=== PATIENT | male | born 2000 | race African-American/Black ===

== ENCOUNTER 2021-12-18 03:35 | Emergency (ER) | payer OTHER, SELFPAY ==
[2021-12-18 03:49] VITALS: BP 133/77; PULSE 84; RESP 15; TEMP 36.7; O2SAT 98; BMI 40.3
[2021-12-18 04:15] LABS: Appearance Urine CLEAR; Color Urine YELLOW; Glucose Urine UA NEG (NEG); Leukocyte Esterase Urine NEG (NEG); Nitrite Urine NEG (NEG); Specific Gravity - Urine >= 1.030 (1.005-1.025); Urine Blood NEG (NEG); Urine Ketones NEG (NEG); Urine Protein NEG (NEG-TRACE)
[2021-12-18 04:56] LABS: Basophils Percent Auto 0.3 % (0-2); Eosinophils Percent Auto 0.3 % (0-4); Hematocrit 44.3 % (42.0-52.0); Hemoglobin 14.9 g/dl (14.0-18.0); Imm Gran Abs Auto 0.01 X10*3/uL (0.00-0.03); Imm Gran Pct Auto 0.1 % (0.0-0.4); Lymphocytes Absolute Auto 1.9 X10*3/uL (1.2-4.9); Lymphocytes Percent Auto 27.7 % (20-40); MANUAL DIFF FLAG NO; Mean Corpuscular HGB Conc 33.6 g/dl (31.0-36.0); Mean Corpuscular Hemoglobin 27.8 pg (27.0-33.0); Mean Corpuscular Volume 82.6 fL (80.0-98.0); Mean Platelet Volume 9.3 fL (9.4-12.4); Monocytes Absolute Auto 0.3 X10*3/uL (0.1-1.2); Monocytes Percent Auto 4.7 % (2-11); Neutrophils Absolute Auto 4.5 x10*3/uL (2.0-8.3); Neutrophils Percent Auto 66.9 % (45-73); Platelet Count 265 X10*3/uL (160-400); Red Blood Count 5.36 X10*6/uL (4.60-5.80); Red Cell Distribution Width 13.1 % (11.0-16.0); White Blood Count 6.8 X10*3/uL (4.8-10.8)
[2021-12-18 05:15] LABS: Alanine Aminotransferase 34 U/L (0-40); Albumin Level 4.4 g/dL (3.5-5.0); Alkaline Phosphatase 75 U/L (39-117); Anion Gap 13 (12-20); Aspartate Amino Transferase 16 U/L (5-37); Bilirubin Direct 0.2 mg/dL (0.0-0.5); Bilirubin Total 0.6 mg/dL (0.0-1.0); Blood Urea Nitrogen 13 mg/dL (9-16); Calcium 9.4 mg/dL (8.4-10.2); Carbon Dioxide 26 mmol/L (22-29); Chloride 106 mmol/L (96-108); Creatinine Clr Calc Pharmacy 169.9; Estimated Glomerular Filt Rate > 60; Glucose Random 108 mg/dL (60-115); Lipase 18 U/L (8-78); Sodium 141 mmol/L (135-145); Total Protein 7.3 g/dL (6.5-8.0)
--- NOTE | 2021-12-18 08:30 | ED_ITS ---
HPI - Male Genitourinary General Chief complaint: Urogenital-Male Stated complaint: Pain when urinating Time Seen by Provider: 12/18/21 08:29 Source: patient Mode of arrival: ambulatory History of Present Illness HPI Narrative: 21-year-old male who presents with dysuria since this morning, denies any fever or chills or penile discharge and denies any scrotal pain. Related Data Previous Rx's Medication Instructions Recorded doxycycline hyclate 100 mg capsule 100 mg PO BID 7 days #14 caps 12/18/21 Allergies Allergy/AdvReac Type Severity Reaction Status Date / Time No Known Allergies Allergy Verified 12/18/21 03:53 Review of Systems Review of Systems: Pertinent positives and negatives as stated in HPI 10 point review of systems is otherwise negative. PMFSH Past Medical History Source: nursing notes reviewed Medical History No known health problems Social History Social History Advance Directives: No Advance Directives Information Provided: No Physical Exam Vital Signs: Vital Signs: Last Vital Signs Temp 98.1 F 12/18/21 03:49 Pulse 84 12/18/21 03:49 Resp 15 12/18/21 03:49 BP 133/77 12/18/21 03:49 Pulse Ox 98 12/18/21 03:49 O2 Del Method 12/18/21 03:49 BMI result Body Mass Index 40.3 VITAL SIGNS: Reviewed. GENERAL: Well developed, well nourished, in no acute distress. HEAD: Normocephalic/atraumatic EYES: PERRLA, EOMI EARS: Ext canals without abnormality OROPHARYNX: no oral lesions noted, posterior pharynx clear LUNGS: Normal breath sounds. No adventitious sounds or accessory muscle use. SpO2<98> CARDIOVASCULAR: Regular rate and rhythm without noted murmurs ABDOMEN: Soft, non-tender, non-distended with bowel sounds. SKIN: Inspection of the skin reveals no rashes NEUROLOGIC: Alert and oriented x 4. Course Course Course Narrative: 21-year-old male with history and clinical presentation suggestive of possible UTI/STI and otherwise low clinical suspicion for intra-abdominal pathology, renal colic. On review of all investigations there are no acute findings, STI testing was pursued and patient was empirically treated after discussion with him regarding the process. He was instructed to stop the antibiotics if he reviewed the STI workup and it was negative. He understands and agrees with proceeding with this testing. MDM - Male Genitourinary Lab Data Result diagrams: 12/18/21 04:35 12/18/21 04:35 Labs: Lab Results 12/18/21 12/18/21 12/18/21 Range/Units 04:02 04:35 04:35 WBC 6.8 (4.8-10.8) X10*3/uL RBC 5.36 (4.60-5.80) X10*6/uL Hgb 14.9 (14.0-18.0) g/dl Hct 44.3 (42.0-52.0) % MCV 82.6 (80.0-98.0) fL MCH 27.8 (27.0-33.0) pg MCHC 33.6 (31.0-36.0) g/dl RDW 13.1 (11.0-16.0) % Plt Count 265 (160-400) X10*3/uL MPV 9.3 L (9.4-12.4) fL Immature Gran % (Auto) 0.1 (0.0-0.4) % Neut % (Auto) 66.9 (45-73) % Lymph % (Auto) 27.7 (20-40) % [place] % (Auto) 4.7 (2-11) % Eos % (Auto) 0.3 (0-4) % Baso % (Auto) 0.3 (0-2) % Lymph # (Auto) 1.9 (1.2-4.9) X10*3/uL [place] # (Auto) 0.3 (0.1-1.2) X10*3/uL Eos # (Auto) 0.0 (0.0-0.4) X10*3/uL Baso # (Auto) 0.0 (0.0-0.2) X10*3/uL Abs Immat Gran (auto) 0.01 (0.00-0.03) X10*3/uL Absolute Neuts (auto) 4.5 (2.0-8.3) x10*3/uL Absolute Nucleated RBC 0.000 (0.0-0.012) X10*3/uL Nucleated RBC % (auto) 0.0 (0.0-0.2) /100WBC Sodium 141 (135-145) mmol/L Potassium 4.0 (3.3-5.1) mmol/L Chloride 106 (96-108) mmol/L Carbon Dioxide 26 (22-29) mmol/L Anion Gap 13 (12-20) BUN 13 (9-16) mg/dL Creatinine 0.76 (0.5-1.4) mg/dL Estim Creat Clear Calc 169.9 Estimated GFR > 60 Random Glucose 108 (60-115) mg/dL Calcium 9.4 (8.4-10.2) mg/dL Total Bilirubin 0.6 (0.0-1.0) mg/dL Direct Bilirubin 0.2 (0.0-0.5) mg/dL AST 16 (5-37) U/L ALT 34 (0-40) U/L Alkaline Phosphatase 75 (39-117) U/L Total Protein 7.3 (6.5-8.0) g/dL Albumin 4.4 (3.5-5.0) g/dL Lipase 18 (8-78) U/L Urine Color YELLOW Urine Appearance CLEAR Urine pH 6.0 (5.0-8.0) Ur Specific [place] >= 1.030 H (1.005-1.025) Urine Protein NEG (NEG-TRACE) MG/DL Urine Glucose (UA) NEG (NEG) MG/DL Urine Ketones NEG (NEG) MG/DL Urine Blood NEG (NEG) Urine Nitrite NEG (NEG) Ur Leukocyte Esterase NEG (NEG) Discharge Plan Discharge Clinical Impression: Dysuria, Urethritis Patient Disposition: Home, Self-Care Instructions: Dysuria (ED) Additional Instructions: 1. Please follow-up on the results of your STI screening, if they are positive you will need to inform all sexual partners. 2. Complete the entire course of antibiotics, but it is okay to stop if on review of your STI screening it is negative. 3. Please refrain from having any sexual relations for 1 week unless, again, the STI screening is negative. Return to the ER for worsening symptoms. Prescriptions: New doxycycline hyclate 100 mg capsule 100 mg PO BID 7 Days Qty: 14 0RF
[2021-12-18] MEDS: cefTRIAXone sodium 500 MG, Lidocaine HCl 1 % MPF 1 ML IM (08:58)
[2021-12-18 11:52] LABS: CT PCR NOT DETECTED (Not Detect.); NG PCR NOT DETECTED (Not Detect.)
== END 2021-12-18 09:08 | disposition home or self-care (01) ==
PROVIDERS: Emergency Provider Student in an Organized Health Care Education/Training Program
DX: N34.2 Other urethritis (principal); R36.9 Urethral discharge, unspecified; R30.0 Dysuria; Z20.2 Contact with and (suspected) exposure to infections with a predominantly sexual mode of transmission; Z79.899 Other long term (current) drug therapy
CPT/HCPCS: 36415; 80053; 81003; 82248; 83690; 85025; 87491; 87591; 96372; 99282; 99284; J0696

== ENCOUNTER 2022-04-12 23:19 | Emergency (ER) | payer SELFPAY ==
--- NOTE | ~2022-04-12 | XR_ITS ---
EXAMINATION: XR HAND/WRIST, LEFT CLINICAL INFORMATION: Pain COMPARISON: None TECHNIQUE: PA, lateral, and oblique views of the left hand and wrist. FINDINGS: There is a nondisplaced transverse fracture of the ring finger distal phalanx at the junction of the base and shaft. No appreciable intra-articular extension. Surrounding soft tissues are swollen. No additional fractures are identified. Bone mineralization is normal. Joints are unremarkable. XR/XR hand wrist LT IMPRESSION: Nondisplaced transverse fracture of the ring finger distal phalanx.
--- NOTE | ~2022-04-12 | CT_ITS ---
EXAMINATION: HEAD CT WITHOUT CONTRAST MAXILLOFACIAL CT WITHOUT CONTRAST CLINICAL INFORMATION: PAIN, SWELLING LEFT EYE. Status post fall. COMPARISON: None. TECHNIQUE: Contiguous axial imaging of the head was performed without the administration of IV contrast. Axial multidetector volumetric images were also obtained through the facial bones without contrast from the frontal sinuses through the mandible. Multiplanar reconstructed images in coronal and sagittal orientations were submitted. This CT examination was performed using dose optimization techniques as appropriate, variously including the following: *Automated exposure control *Adjustment of mA and/or kV according to patient size (this includes techniques or standardized protocols for targeted exams where dose is matched to indication/reason for exam; i.e. extremities or head) *Use of iterative reconstruction technique DOSE: 1292 mGy-cm FINDINGS: HEAD: There is no evidence of acute intracranial hemorrhage or territorial infarction. No abnormal mass-effect or midline shift. No extra-axial fluid collections. Arizm[place] to white matter differentiation is well preserved. The ventricles are normal in size and configuration. There is no abnormal attenuation within the brain parenchyma. Left periorbital swelling. Trace left parietal subgaleal hematoma (3 mm in thickness). No underlying calvarial fractures. The sinuses and mastoid air cells are clear. MAXILLOFACIAL: The mandible, maxilla, pterygoid plates, nasal bones, zygomatic arches, paranasal sinus bernardo, and bony orbits are intact. No acute osseous abnormality within the maxillofacial region. Left periorbital soft tissue swelling with subcutaneous edema. No post septal fat stranding or retrobulbar hematoma. Globes appear symmetric. No underlying fractures. The paranasal sinuses and mastoid air cells remain well-aerated. Minimal mucosal thickening in the maxillary sinuses. Teeth appear intact without acute surrounding abnormalities. Temporomandibular joints are unremarkable. CT/CT facial bones wo IV con IMPRESSION: 1. No acute intracranial pathology. 2. Left periorbital soft tissue swelling. No underlying fractures.
[2022-04-12 23:37] VITALS: BP 152/96; PULSE 121; RESP 18; TEMP 37.9; O2SAT 95; BMI 44.9
--- NOTE | 2022-04-12 23:46 | PC.NURSE ---
pupils are 4mm and equal/briskly reactive to light at triage
[2022-04-13 00:26] VITALS: BP 145/94; PULSE 119; RESP 18; TEMP 37; O2SAT 96
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
[2022-04-13 01:54] VITALS: BP 146/82; PULSE 102; RESP 16; TEMP 36.9; O2SAT 96
[2022-04-13] MEDS: Ibuprofen 600 MG TABLET PO (01:55)
== END 2022-04-13 02:04 | disposition home or self-care (01) ==
PROVIDERS: Emergency Provider Internal Medicine
DX: S09.90XA Unspecified injury of head, initial encounter (principal); S00.83XA Contusion of other part of head, initial encounter; S62.665A Nondisplaced fracture of distal phalanx of left ring finger, initial encounter for closed fracture; V28.09XA Other motorcycle driver injured in noncollision transport accident in nontraffic accident, initial encounter; Y93.89 Activity, other specified; Y92.414 Local residential or business street as the place of occurrence of the external cause; Y99.9 Unspecified external cause status
CPT/HCPCS: 29130; 70450; 70486; 73110; 73130; 99284

== ENCOUNTER 2022-04-15 00:44 | Emergency (ER) | payer SELFPAY ==
[2022-04-15 00:50] VITALS: BP 134/84; PULSE 85; RESP 18; TEMP 36.6; O2SAT 97; BMI 44.9
[2022-04-15 01:12] LABS: Appearance Urine Clear; Color Urine Yellow; Glucose Urine UA Negative (Negative); Leukocyte Esterase Urine Small (1+) (Negative); Nitrite Urine Negative (Negative); PH 5.5 (5.0-9.0); Specific Gravity - Urine >= 1.030 (1.005-1.025); UMIC TRIGGER UACC YES; Urine Blood Negative (Negative); Urine Ketones Trace mg/dL (Negative); Urine Protein Negative (Neg-Trace)
[2022-04-15 01:14] LABS: Bacteria Urine None Seen (None Seen); Hyaline Casts Urine 0-2 /LPF (0-2); UACC Culture Trigger YES
--- NOTE | 2022-04-15 01:43 | ED_ITS ---
HPI - General Adult General Chief complaint: General Medical Stated complaint: possible UTI/bladder infection Time Seen by Provider: 04/15/22 01:31 Source: patient Mode of arrival: ambulatory Limitations: no limitations History of Present Illness HPI narrative: Patient comes to emergency room complaining of dysuria that started 50 minutes prior to arrival to the emergency room. Patient denies penile discharge. However, patient is concerned about STDs, requesting to be treated empirically. Patient denies fever chills, no abdominal pain, no flank pain. Related Data Previous Rx's Medication Instructions Recorded doxycycline hyclate 100 mg capsule 100 mg PO BID 7 days #14 caps 12/18/21 ibuprofen 600 mg tablet 600 mg PO Q6H PRN fever or pain 04/13/22 #30 tabs cefuroxime axetil 500 mg tablet 500 mg PO BID #14 tabs 04/15/22 doxycycline hyclate 100 mg tablet 100 mg PO BID #14 tabs 04/15/22 Allergies Allergy/AdvReac Type Severity Reaction Status Date / Time No Known Allergies Allergy Verified 04/12/22 23:37 Review of Systems Review of Systems: Constitutional : No Weight loss, No Fever, No Chills, No Night Sweats, No Fatigue, No Malaise ENT/Mouth : No Hearing loss, No Ear Pain, No Nasal Congestion, No Sinus Pain, No Hoarseness, No sore throat, No Rhinorrhea, No Swallowing Difficulty Eyes: No Eye Pain, No Swelling, No Redness, No Foreign Body, No Discharge, No Vision Changes Cardiovascular : No Chest Pain, No SOB, No Dyspnea on Exertion, No Orthopnea, No Edema, No Palpitations Respiratory : No Cough, No Sputum, No Wheezing, No Smoke Exposure, No Dyspnea Gastrointestinal : No Nausea, No Vomiting, No Diarrhea, No Constipation, No abdominal Pain, No Hematochezia, No Melena Genitourinary : no irregular bleeding, c/o Dysuria, No Urinary Frequency, No Hematuria, No Urinary Incontinence, No Urgency, No Flank Pain, No Urinary Flow Changes, No Hesitancy Musculoskeletal : No joint pain, No Myalgias, No Joint Swelling Skin : No Skin Lesions, No rash Neuro : No Weakness, No Numbness, No Paresthesias, No Loss of Consciousness, No Dizziness, No Headache Psych : No Anxiety/Panic, No Depression, No SI/HI/AH/VH, No Social Issues, Heme/Lymph: No Bruising, No Bleeding,No Lymphadenopathy Endocrine : No Polyuria, No Polydipsia, No Temperature Intolerance [facility] Past Medical History Medical History No known health problems Physical Exam ED Vital Signs: Vital Signs - 24 hr 04/15/22 00:50 Temperature 97.9 F Pulse Rate 85 Respiratory Rate 18 Blood Pressure 134/84 Pulse Oximetry 97 Oxygen Delivery Method Room Air BMI result Body Mass Index 44.9 Const Other: Appearance: Alert. Oriented X3. No acute distress. Eyes: Pupils equal, round and reactive to light. ENT: Pharynx normal. Neck: Normal inspection. Neck supple. No lymph nodes noted. No crepitus CVS: Normal heart rate and rhythm. Pulses normal. Normal S1 and S2 Respiratory: No respiratory distress. Breath sounds normal. No Wheezing. No rales Abdomen: Soft and nontender. No rigidity. No distention. Skin: Skin warm and dry. Normal skin color. Normal skin turgor. Extremities: No lower extremity edema. No Lacerations. No Rash Neuro: Oriented X 3. No motor deficit. No sensory deficit. Moving all extremities. No slurred speech. CN 2 through 12 grossly intact Psych: calm, cooperative, normal affect Course Course Course Narrative: patient was given 1 injection of IM Ceftriaxone and p.o. doxycycline Medical Decision Making Lab Data Labs: Lab Results 04/15/22 Range/Units 01:00 Urine Color Yellow Urine Appearance Clear Urine pH 5.5 (5.0-9.0) Ur Specific [place] >= 1.030 H (1.005-1.025) Urine Protein Negative (Neg-Trace) mg/dL Urine Glucose (UA) Negative (Negative) mg/dL Urine Ketones Trace (Negative) mg/dL Urine Blood Negative (Negative) Urine Nitrite Negative (Negative) Ur Leukocyte Esterase Small (1+) H (Negative) Urine RBC 3-5 H (0-2) /HPF Urine WBC 6-10 H (0-5) /HPF Ur Squamous Epith Cells 3-5 (0-2) /HPF Urine Bacteria None Seen (None Seen) Hyaline Casts 0-2 (0-2) /LPF Discharge Plan Discharge Clinical Impression: Concern about STD in male without diagnosis, UTI (urinary tract infection) Patient Disposition: Home, Self-Care Instructions: Urinary Tract Infection in Men (ED) Additional Instructions: Please follow-up with your primary care physician tomorrow. If you have any worsening or new symptoms, please return to the emergency room or call 911 Prescriptions: New cefuroxime axetil 500 mg tablet 500 mg PO BID Qty: 14 0RF doxycycline hyclate 100 mg tablet 100 mg PO BID Qty: 14 0RF No Action doxycycline hyclate 100 mg capsule 100 mg PO BID 7 Days Qty: 14 0RF ibuprofen 600 mg tablet 600 mg PO Q6H PRN (Reason: fever or pain) Qty: 30 0RF
[2022-04-15] MEDS: Doxycycline Monohydrate 100 MG CAPSULE PO (02:09)
[2022-04-15] MEDS: cefTRIAXone sodium 1 GM, Lidocaine HCl 1 % MPF 2.1 ML IM (02:09)
[2022-04-15 07:22] LABS: CT PCR NOT DETECTED (Not Detect.); NG PCR NOT DETECTED (Not Detect.)
== END 2022-04-15 02:31 | disposition home or self-care (01) ==
LOC: HO.ED 01:59
PROVIDERS: Emergency Provider Emergency Medicine
DX: N39.0 Urinary tract infection, site not specified (principal); Z20.2 Contact with and (suspected) exposure to infections with a predominantly sexual mode of transmission; Z79.899 Other long term (current) drug therapy
CPT/HCPCS: 81001; 87086; 87491; 87591; 96372; 99282; 99284; J0696

== ENCOUNTER 2022-04-22 22:13 | Emergency (ER) | payer SELFPAY ==
[2022-04-22 22:24] VITALS: BP 145/80; PULSE 95; RESP 18; TEMP 36.5; O2SAT 98; BMI 44.9
[2022-04-23 00:21] VITALS: BP 121/79; PULSE 80; RESP 18; TEMP 37; O2SAT 96
--- NOTE | 2022-04-23 00:34 | ED.GENADULT ---
HPI - General Adult General Chief complaint: General Medical Stated complaint: Medical Clearance Time Seen by Provider: 04/23/22 00:33 Source: patient Mode of arrival: ambulatory Limitations: no limitations History of Present Illness HPI narrative: 22-year-old male presents with penile irritation. Stated that he was evaluated on 04/15/2022, and given antibiotics for STI and urinary tract infection. Patient states that he has ?white stuff on his penis? has pain when he urinates, and is concerned about recurrent infection. Does not report fevers or chills, abdominal pain, hematuria, is not immunocompromised. Onset (ago): day(s) Location: genitals Radiation: non-radiation Severity: moderate Severity scale (1-10): 5 Quality: burning Pain Consistency: intermittent Relieving factors: none Exacerbating factors: other (Voiding) Associated symptoms: denies other symptoms Treatments prior to arrival: other (Antibiotics) Related Data Previous Rx's Medication Instructions Recorded doxycycline hyclate 100 mg capsule 100 mg PO BID 7 days #14 caps 12/18/21 ibuprofen 600 mg tablet 600 mg PO Q6H PRN fever or pain 04/13/22 #30 tabs cefuroxime axetil 500 mg tablet 500 mg PO BID #14 tabs 04/15/22 doxycycline hyclate 100 mg tablet 100 mg PO BID #14 tabs 04/15/22 fluconazole 150 mg tablet 150 mg PO DAILY #1 tab 04/23/22 (Diflucan) Allergies Allergy/AdvReac Type Severity Reaction Status Date / Time No Known Allergies Allergy Verified 04/12/22 23:37 Review of Systems Review of Systems: Constitutional: No Fever, No Chills ENT/Mouth: No Ear Pain, No Hoarseness, No sore throat Eyes: No Eye Pain, No Swelling, No Redness, No Foreign Body Cardiovascular: No Chest Pain, No SOB Respiratory: No Cough, No Dyspnea Gastrointestinal: No Nausea, No Vomiting, No Diarrhea, No abdominal Pain Genitourinary: Positive penile discharge and Dysuria, No Hematuria Musculoskeletal: No joint pain, No Myalgias, No Joint Swelling Skin: No Skin lacerations, No rash Neuro: No Weakness, No Numbness, No Paresthesias, No Loss of Consciousness, No Dizziness, No Headache Psych: No Anxiety/Panic, No Depression Heme/Lymph: no easy bruising, no Lymphadenopathy Endocrine: No Polyuria, No Polydipsia Yes all other systems are reviewed and are negative [facility] Past Medical History Attestation statement: The following information was validated with the patient. Source: old records reviewed Medical History No known health problems Social History Social History Advance Directives: No Physical Exam ED Vital Signs: Vital Signs - 24 hr 04/22/22 22:24 04/23/22 00:21 Temperature 97.7 F 98.6 F Pulse Rate 95 80 Respiratory Rate 18 18 Blood Pressure 145/80 H 121/79 Pulse Oximetry 98 96 Oxygen Delivery Method Room Air Room Air BMI result Body Mass Index 44.9 Appearance: Alert. Oriented X3. No acute distress. Eyes: Pupils equal, round and reactive to light. ENT: Pharynx normal. Neck: Normal inspection. Neck supple. CVS: Normal heart rate and rhythm. Pulses normal. Respiratory: No respiratory distress. Breath sounds normal. Abdomen: Soft and nontender. Genitourinary: Tissue irritation around the glans and foreskin with white exudate consistent with candidiasis. No penile discharge. No testicular pain. Skin: Skin warm and dry. Normal skin color. Normal skin turgor. Extremities: No lower extremity edema. Gait well-balanced well coordinated. Neuro: No motor deficit. No sensory deficit. Cranial nerves 2-12 intact. Course Course Course Narrative: 22-year-old male presents for evaluation of penile discharge and dysuria. Was treated with cefuroxime and doxycycline on 04/15/2022 for suspected STI and urinary tract infection. Patient stated that he has been taking his medications as directed, finish the entire course of noted some white exudate around the head of the penis and on his retracted foreskin. He states to be sexually active with his female fiancee, and does not engage in intercourse with men. Physical inspection of genitalia indicates skin irritation and white exudate consistent with candidiasis. Will treat with Diflucan and have patient follow-up with his primary care physician Urinalysis is negative Patient verbalized understanding of and agrees to plan of care discharge home. Verbalized understanding of signs and symptoms indicating need for emergent intervention. Medications Administered Discontinued Medications Generic Name Dose Route Start Last Admin Trade Name Freq PRN Reason Stop Dose Admin Fluconazole 150 mg 04/23/22 00:50 04/23/22 01:22 Fluconazole 150 Mg Tablet PO 04/23/22 00:51 150 mg ONCE ONE Administration Medical Decision Making Differential Diagnosis Differential Diagnosis: Herpes, STI, UTI, candidiasis Medical Records Medical records reviewed: Yes I reviewed the patient's medical records. Lab Data Lab results reviewed: Yes I reviewed the patient's lab results. Labs: Lab Results 04/23/22 Range/Units 00:24 Urine Color Yellow Urine Appearance Clear Urine pH 6.0 (5.0-9.0) Ur Specific [place] >= 1.030 H (1.005-1.025) Urine Protein Trace (Neg-Trace) mg/dL Urine Glucose (UA) Negative (Negative) mg/dL Urine Ketones Negative (Negative) mg/dL Urine Blood Negative (Negative) Urine Nitrite Negative (Negative) Ur Leukocyte Esterase Negative (Negative) Discharge Plan Discharge Clinical Impression: Candidiasis Patient Disposition: Home, Self-Care Instructions: Skin Yeast Infection (ED) Additional Instructions: You were evaluated for dysuria. Your urinalysis is negative. Your symptoms are consistent with yeast infection. Please take Diflucan on April 26. We gave you your 1st dose in the emergency department. Thank you for choosing this emergency department for evaluation. Please follow-up with primary care physician as needed. Return to the emergency department for any new, concerning, or worsening symptoms. Prescriptions: New fluconazole [Diflucan] 150 mg tablet 150 mg PO DAILY Qty: 1 0RF Rx Instructions: Take this tablet on 04/26/2022. First dose given on 04/23/2022. No Action doxycycline hyclate 100 mg capsule 100 mg PO BID 7 Days Qty: 14 0RF cefuroxime axetil 500 mg tablet 500 mg PO BID Qty: 14 0RF doxycycline hyclate 100 mg tablet 100 mg PO BID Qty: 14 0RF ibuprofen 600 mg tablet 600 mg PO Q6H PRN (Reason: fever or pain) Qty: 30 0RF Interventions: ED Discharge Assessment Last Done: 04/23/22 01:28 Discharge Date/Time: 04/23/22 01:28
[2022-04-23 00:40] LABS: Appearance Urine Clear; Color Urine Yellow; Glucose Urine UA Negative (Negative); Leukocyte Esterase Urine Negative (Negative); Nitrite Urine Negative (Negative); Specific Gravity - Urine >= 1.030 (1.005-1.025); Urine Blood Negative (Negative); Urine Ketones Negative (Negative); Urine Protein Trace mg/dL (Neg-Trace)
[2022-04-23] MEDS: Fluconazole 150 MG TABLET PO (01:22)
--- NOTE | 2022-04-23 01:27 | PC.NURSE ---
Discharge instructions reviewed with pt. Pt verbalizes understanding.
== END 2022-04-23 01:28 | disposition home or self-care (01) ==
PROVIDERS: Emergency Provider Student in an Organized Health Care Education/Training Program
DX: B37.9 Candidiasis, unspecified (principal)
CPT/HCPCS: 81003; 99283

== ENCOUNTER 2022-07-05 22:39 | Emergency (ER) | payer OTHER, SELFPAY ==
[2022-07-05 23:02] VITALS: BP 151/88; PULSE 83; RESP 16; TEMP 36.8; O2SAT 97; BMI 43.2
--- NOTE | 2022-07-05 23:47 | ED.GENADULT ---
HPI - General Adult General Chief complaint: General Medical Stated complaint: STD check Time Seen by Provider: 07/05/22 23:34 Source: patient Mode of arrival: ambulatory Limitations: no limitations History of Present Illness HPI narrative: Patient comes to the emergency room complaining penile peeling. Patient states that he does not have dysuria. However, patient is requesting to be tested for STDs. Patient denies fever chills, no flank pain, no suprapubic pain. Denies penile discharge Related Data Previous Rx's Medication Instructions Recorded doxycycline hyclate 100 mg capsule 100 mg PO BID 7 days #14 caps 12/18/21 ibuprofen 600 mg tablet 600 mg PO Q6H PRN fever or pain 04/13/22 #30 tabs cefuroxime axetil 500 mg tablet 500 mg PO BID #14 tabs 04/15/22 doxycycline hyclate 100 mg tablet 100 mg PO BID #14 tabs 04/15/22 fluconazole 150 mg tablet 150 mg PO DAILY #1 tab 04/23/22 (Diflucan) clotrimazole 1 % topical cream 1 appl topical BID #15 grams 07/06/22 Allergies Allergy/AdvReac Type Severity Reaction Status Date / Time No Known Allergies Allergy Verified 04/12/22 23:37 Review of Systems Review of Systems: Constitutional : No Weight loss, No Fever, No Chills, No Night Sweats, No Fatigue, No Malaise ENT/Mouth : No Hearing loss, No Ear Pain, No Nasal Congestion, No Sinus Pain, No Hoarseness, No sore throat, No Rhinorrhea, No Swallowing Difficulty Eyes: No Eye Pain, No Swelling, No Redness, No Foreign Body, No Discharge, No Vision Changes Cardiovascular : No Chest Pain, No SOB, No Dyspnea on Exertion, No Orthopnea, No Edema, No Palpitations Respiratory : No Cough, No Sputum, No Wheezing, No Smoke Exposure, No Dyspnea Gastrointestinal : No Nausea, No Vomiting, No Diarrhea, No Constipation, No abdominal Pain, No Hematochezia, No Melena Genitourinary : Complaining of penile/glands skin peeling, No Dysuria, No Urinary Frequency, No Hematuria, No Urinary Incontinence, No Urgency, No Flank Pain, No Urinary Flow Changes, No Hesitancy Musculoskeletal : No joint pain, No Myalgias, No Joint Swelling Skin : No Skin Lesions, No rash Neuro : No Weakness, No Numbness, No Paresthesias, No Loss of Consciousness, No Dizziness, No Headache Psych : No Anxiety/Panic, No Depression, No SI/HI/AH/VH, No Social Issues, Heme/Lymph: No Bruising, No Bleeding,No Lymphadenopathy Endocrine : No Polyuria, No Polydipsia, No Temperature Intolerance [facility] Past Medical History Medical History No known health problems Social History Social History Advance Directives: No Physical Exam ED Vital Signs: Vital Signs - 24 hr 07/05/22 23:02 Temperature 98.2 F Pulse Rate 83 Respiratory Rate 16 Blood Pressure 151/88 H Pulse Oximetry 97 Oxygen Delivery Method Room Air BMI result Body Mass Index 43.2 Const Other: Appearance: Alert. Oriented X3. No acute distress. Eyes: Pupils equal, round and reactive to light. ENT: Pharynx normal. Neck: Normal inspection. Neck supple. No lymph nodes noted. No crepitus CVS: Normal heart rate and rhythm. Pulses normal. Normal S1 and S2 Respiratory: No respiratory distress. Breath sounds normal. No Wheezing. No rales Abdomen: Soft and nontender. No rigidity. No distention. : Mild peeling in the glands, no penile discharge, no testicular pain Skin: Skin warm and dry. Normal skin color. Normal skin turgor. Extremities: No lower extremity edema. No Lacerations. No Rash Neuro: Oriented X 3. No motor deficit. No sensory deficit. Moving all extremities. No slurred speech. CN 2 through 12 grossly intact Psych: calm, cooperative, normal affect Medical Decision Making Medical Decision Making MDM Narrative: -I discussed with the patient that if his urine test positive for gonorrhea chlamydia, he will receive a phone call in the next couple of days. At this time, I do not suspect the patient has either gonorrhea or chlamydia Discharge Plan Discharge Clinical Impression: Candidiasis of penis Patient Disposition: Home, Self-Care Instructions: Yeast Infection (ED) Additional Instructions: Please follow-up with your primary care physician tomorrow. If you have any worsening or new symptoms, please return to the emergency room or call 911 Prescriptions: New clotrimazole 1 % cream 1 appl topical BID Qty: 15 0RF No Action doxycycline hyclate 100 mg capsule 100 mg PO BID 7 Days Qty: 14 0RF cefuroxime axetil 500 mg tablet 500 mg PO BID Qty: 14 0RF doxycycline hyclate 100 mg tablet 100 mg PO BID Qty: 14 0RF ibuprofen 600 mg tablet 600 mg PO Q6H PRN (Reason: fever or pain) Qty: 30 0RF fluconazole [Diflucan] 150 mg tablet 150 mg PO DAILY Qty: 1 0RF Rx Instructions: Take this tablet on 04/26/2022. First dose given on 04/23/2022.
[2022-07-06 00:31] VITALS: BP 145/66; PULSE 88; RESP 16; TEMP 36.7; O2SAT 99
--- NOTE | 2022-07-06 00:36 | PC.NURSE ---
pt denies sob or chest pain. Reviewed discharge instructions with pt and pt verbalized.
== END 2022-07-06 00:39 | disposition home or self-care (01) ==
PROVIDERS: Emergency Provider Emergency Medicine; PCP Hospitalist
DX: B37.42 Candidal balanitis (principal); Z79.899 Other long term (current) drug therapy
CPT/HCPCS: 99284

== ENCOUNTER 2022-08-29 06:00 | Emergency (ER) | payer OTHER, SELFPAY ==
[2022-08-29 06:03] VITALS: BP 151/92; PULSE 85; RESP 18; TEMP 36.6; O2SAT 96; BMI 49.1
[2022-08-29 07:38] LABS: MANUAL DIFF FLAG NO
[2022-08-29 07:39] LABS: Basophils Percent Auto 0.4 % (0-2); Eosinophils Percent Auto 0.4 % (0-4); Hematocrit 46.5 % (42.0-52.0); Hemoglobin 15.6 g/dl (14.0-18.0); Imm Gran Abs Auto 0.02 X10*3/uL (0.00-0.03); Imm Gran Pct Auto 0.3 % (0.0-0.4); Lymphocytes Absolute Auto 1.8 X10*3/uL (1.2-4.9); Lymphocytes Percent Auto 26.2 % (20-40); Mean Corpuscular HGB Conc 33.5 g/dl (31.0-36.0); Mean Corpuscular Hemoglobin 27.8 pg (27.0-33.0); Mean Corpuscular Volume 82.7 fL (80.0-98.0); Mean Platelet Volume 9.1 fL (9.4-12.4); Monocytes Absolute Auto 0.5 X10*3/uL (0.1-1.2); Monocytes Percent Auto 6.7 % (2-11); Neutrophils Absolute Auto 4.5 x10*3/uL (2.0-8.3); Platelet Count 266 X10*3/uL (160-400); Red Blood Count 5.62 X10*6/uL (4.60-5.80); White Blood Count 6.8 X10*3/uL (4.8-10.8)
--- NOTE | 2022-08-29 07:41 | ED_ITS ---
HPI - Male Genitourinary General Chief complaint: Urogenital-Male Stated complaint: Can't urine Time Seen by Provider: 08/29/22 07:15 Source: patient Mode of arrival: ambulatory Limitations: no limitations History of Present Illness HPI Narrative: 22-year-old male came in for evaluation of being unable to urinate. Patient had urge to urinate but unable to pass any urine started when he woke up this morning, patient declined any history of dysuria or frequency urination sexually active with 1 partner patient declined risk of STD no urethral discharge, no fever, no chills, no nausea, no vomiting. No abdominal pain, no flank pain. Related Data Previous Rx's Medication Instructions Recorded doxycycline hyclate 100 mg capsule 100 mg PO BID 7 days #14 caps 12/18/21 ibuprofen 600 mg tablet 600 mg PO Q6H PRN fever or pain 04/13/22 #30 tabs cefuroxime axetil 500 mg tablet 500 mg PO BID #14 tabs 04/15/22 doxycycline hyclate 100 mg tablet 100 mg PO BID #14 tabs 04/15/22 fluconazole 150 mg tablet 150 mg PO DAILY #1 tab 04/23/22 (Diflucan) clotrimazole 1 % topical cream 1 appl topical BID #15 grams 07/06/22 Allergies Allergy/AdvReac Type Severity Reaction Status Date / Time No Known Allergies Allergy Verified 08/29/22 06:07 Review of Systems 2 Review of Systems: All other systems are reviewed and are negative Constitutional: Reports as per HPI and Reports no additional constitutional complaints Eyes: Reports as per HPI and Reports no additional eye complaints Reports system reviewed and no additional complaints, except as documented Cardiovascular: Reports as per HPI and Reports no additional cardiovascular complaints Respiratory: Reports as per HPI and Reports no additional respiratory complaints Gastrointestinal: Reports as per HPI and Reports no additional gastrointestinal complaints Genitourinary: Reports no additional female genitourinary complaints Musculoskeletal: Reports no additional musculoskeletal complaints Skin/Breast: Reports system reviewed and no additional complaints, except as docu Psychiatric: Reports no additional psychiatric complaints Endocrine: Reports no additional endocrine complaints Hematologic/Lymphatic: Reports no additional hematologic/lymphatic complaints Allergic/Immunologic: Reports no additional allergic/immunologic complaints Reports system reviewed and no additional complaints, except as documented and Reports Abnormal speech present [facility] Past Medical History Medical History No known health problems Social History Social History Alcohol intake: never Smoked in Last 30 Days: No Use of substances other than those prescribed or required for medical reasons: No Advance Directives: No Physical Exam Vital Signs: Vital Signs: Last Vital Signs Temp 97.8 F 08/29/22 06:03 Pulse 85 08/29/22 06:03 Resp 18 08/29/22 06:03 BP 151/92 H 08/29/22 06:03 Pulse Ox 96 08/29/22 06:03 O2 Del Method Room Air 08/29/22 06:03 BMI result Body Mass Index 49.1 Vital signs have been reviewed as appeared to be correct. Blood pressure normal. Heart rate normal. Respiration rate normal. Temperature normal. Oxygen saturation normal. Appearance: Alert. Oriented X3. No acute distress. Head: Normal external exam. Normocephalic. Atraumatic. No Morales signs noted. No raccoon eyes noted Eyes: PERRLA. EOMI. Conjunctiva and sclera normal. Eyelids normal. ENT: TM's Normal. Pharynx normal. Uvula midline. Moist mucous membranes. No trismus noted. No drooling noted. No muffled voice noted. Neck: Normal inspection. Neck supple. FROM. No adenopathy. Thyroid Normal. No meningeal signs. No neck mass noted. CVS: Normal heart rate and rhythm. Heart sound normal. No murmurs noted. Pulses normal throughout. Respiratory: No respiratory distress. Painless inspiration. Breath sounds normal. No wheezes/rales/rhonchi noted. Chest nontender. No accessory muscle usage noted or decreased air movement noted. Abdomen: Soft and nontender. Bowel sounds normal in all 4 quadrants. No distention noted. No organomegaly noted. No visible injury noted. Back: No CVA tenderness. Full range of motion noted. Skin: Skin warm and dry. Normal skin color. Normal skin turgor. No rashes/lesions/lacerations noted. Extremities: No lower extremity edema. Extremities exhibit normal range of motion. Extremities nontender. Neuro: Oriented X 3. Cranial nerve exam: II-XII are grossly intact No motor deficit. No sensory deficit. Reflexes normal. Course Course Course Narrative: 22-year-old male came in for evaluation of inability to urinate this morning, urine sample is unremarkable, no risk for STDs, renal function within normal value, patient was given plenty of fluid to drink in the ED then patient went to the bathroom and reported normal urination, Will reassure and encouraged to drink plenty of fluid. Medical Decision Making Differential Diagnosis Differential Diagnoses: The differential diagnosis associated with the presentation includes (UTI, STD, CHITRA, obstructing kidney stone, undiagnosed diabetes.) Lab Data MDM Lab Attestation statement: I reviewed the patient's lab results. 08/29/22 07:34 08/29/22 07:34 Labs: Lab Results 08/29/22 08/29/22 08/29/22 Range/Units 07:34 07:34 07:38 WBC 6.8 (4.8-10.8) X10*3/uL RBC 5.62 (4.60-5.80) X10*6/uL Hgb 15.6 (14.0-18.0) g/dl Hct 46.5 (42.0-52.0) % MCV 82.7 (80.0-98.0) fL MCH 27.8 (27.0-33.0) pg MCHC 33.5 (31.0-36.0) g/dl RDW 13.0 (11.0-16.0) % Plt Count 266 (160-400) X10*3/uL MPV 9.1 L (9.4-12.4) fL Immature Gran % (Auto) 0.3 (0.0-0.4) % Neut % (Auto) 66.0 (45-73) % Lymph % (Auto) 26.2 (20-40) % [place] % (Auto) 6.7 (2-11) % Eos % (Auto) 0.4 (0-4) % Baso % (Auto) 0.4 (0-2) % Lymph # (Auto) 1.8 (1.2-4.9) X10*3/uL [place] # (Auto) 0.5 (0.1-1.2) X10*3/uL Eos # (Auto) 0.0 (0.0-0.4) X10*3/uL Baso # (Auto) 0.0 (0.0-0.2) X10*3/uL Abs Immat Gran (auto) 0.02 (0.00-0.03) X10*3/uL Absolute Neuts (auto) 4.5 (2.0-8.3) x10*3/uL Absolute Nucleated RBC 0.000 (0.0-0.012) X10*3/uL Nucleated RBC % (auto) 0.0 (0.0-0.2) /100WBC Sodium 142 (135-145) mmol/L Potassium 4.1 (3.3-5.1) mmol/L Chloride 107 (96-108) mmol/L Carbon Dioxide 25 (22-29) mmol/L Anion Gap 14 (12-20) BUN 12 (9-16) mg/dL Creatinine 0.67 (0.5-1.4) mg/dL Estim Creat Clear Calc 221.1 Estimated GFR > 60 Random Glucose 107 (60-115) mg/dL Calcium 9.3 (8.4-10.2) mg/dL Urine Color Yellow Urine Appearance Clear Urine pH 6.5 (5.0-9.0) Ur Specific [place] 1.025 (1.005-1.025) Urine Protein Negative (Neg-Trace) mg/dL Urine Glucose (UA) Negative (Negative) mg/dL Urine Ketones Negative (Negative) mg/dL Urine Blood Negative (Negative) Urine Nitrite Negative (Negative) Ur Leukocyte Esterase Negative (Negative) Discharge Plan Discharge Clinical Impression: Dysuria Patient Disposition: Home, Self-Care Instructions: Dysuria (ED) Prescriptions: No Action doxycycline hyclate 100 mg capsule 100 mg PO BID 7 Days Qty: 14 0RF cefuroxime axetil 500 mg tablet 500 mg PO BID Qty: 14 0RF doxycycline hyclate 100 mg tablet 100 mg PO BID Qty: 14 0RF ibuprofen 600 mg tablet 600 mg PO Q6H PRN (Reason: fever or pain) Qty: 30 0RF fluconazole [Diflucan] 150 mg tablet 150 mg PO DAILY Qty: 1 0RF Rx Instructions: Take this tablet on 04/26/2022. First dose given on 04/23/2022. clotrimazole 1 % cream 1 appl topical BID Qty: 15 0RF Referrals: Physician,Unknown J [Primary Care Provider] - Stand Alone Forms: Work/School Release
[2022-08-29 07:46] LABS: Appearance Urine Clear; Color Urine Yellow; Glucose Urine UA Negative (Negative); Leukocyte Esterase Urine Negative (Negative); Nitrite Urine Negative (Negative); PH 6.5 (5.0-9.0); Specific Gravity - Urine 1.025 (1.005-1.025); Urine Blood Negative (Negative); Urine Ketones Negative (Negative); Urine Protein Negative (Neg-Trace)
[2022-08-29 08:01] LABS: Anion Gap 14 (12-20); Blood Urea Nitrogen 12 mg/dL (9-16); Calcium 9.3 mg/dL (8.4-10.2); Carbon Dioxide 25 mmol/L (22-29); Chloride 107 mmol/L (96-108); Creatinine Clr Calc Pharmacy 221.1; Estimated Glomerular Filt Rate > 60; Glucose Random 107 mg/dL (60-115); Potassium 4.1 mmol/L (3.3-5.1); Sodium 142 mmol/L (135-145)
[2022-08-29 10:12] LABS: CT PCR NOT DETECTED (Not Detect.); NG PCR NOT DETECTED (Not Detect.)
== END 2022-08-29 09:41 | disposition home or self-care (01) ==
PROVIDERS: Emergency Provider Emergency Medicine
DX: R30.0 Dysuria (principal); Z79.899 Other long term (current) drug therapy
CPT/HCPCS: 0353U; 36415; 51798; 80048; 81003; 85025; 99284

== ENCOUNTER 2022-11-18 23:12 | Emergency (ER) | payer OTHER, SELFPAY ==
[2022-11-18 23:13] VITALS: BP 142/99; PULSE 92; RESP 18; TEMP 37.1; O2SAT 95; BMI 47.4
--- NOTE | 2022-11-18 23:39 | PC.NURSE ---
patient came to the ER due to patient has a abscess under his chin patient stated it is a 01/31 patient is monitored for safety
--- NOTE | 2022-11-19 00:41 | ED.GENADULT ---
HPI - General Adult General Chief complaint: Skin/Abscess/Foreign Body Stated complaint: abscess under chin Time Seen by Provider: 11/19/22 00:18 Source: patient, RN notes reviewed and old records reviewed Mode of arrival: ambulatory Limitations: no limitations History of Present Illness HPI narrative: 22-year-old male presents for evaluation of a red, swollen lump to the underside of his chin He 1st noticed the symptoms yesterday after shaving He reports that he used a clean razor He thought initially had a pimple and he tried to squeeze it to see if any pus would come out but ?nothing came out. ? He reports increasing redness, swelling and pain since Denies any fevers or chills Related Data Previous Rx's Medication Instructions Recorded doxycycline hyclate 100 mg capsule 100 mg PO BID 7 days #14 caps 12/18/21 ibuprofen 600 mg tablet 600 mg PO Q6H PRN fever or pain 04/13/22 #30 tabs cefuroxime axetil 500 mg tablet 500 mg PO BID #14 tabs 04/15/22 doxycycline hyclate 100 mg tablet 100 mg PO BID #14 tabs 04/15/22 fluconazole 150 mg tablet 150 mg PO DAILY #1 tab 04/23/22 (Diflucan) clotrimazole 1 % topical cream 1 appl topical BID #15 grams 07/06/22 cephalexin 500 mg capsule 500 mg PO QID #28 caps 11/19/22 Allergies Allergy/AdvReac Type Severity Reaction Status Date / Time No Known Allergies Allergy Verified 08/29/22 06:07 Review of Systems Constitutional: Constitutional: Denies chills and Denies fever(s) Integumentary/Breasts: Skin/Breast: Reports lesions, Reports erythema and Reports skin swelling PMFSH Past Medical History Medical History No known health problems Social History Social History Alcohol intake: never Smoked in Last 30 Days: No Use of substances other than those prescribed or required for medical reasons: No Advance Directives: No Advance Directives Information Provided: No Physical Exam ED Vital Signs: Vital Signs - 24 hr 11/18/22 23:13 Temperature 98.7 F Pulse Rate 92 Respiratory Rate 18 Blood Pressure 142/99 H Pulse Oximetry 95 Oxygen Delivery Method Room Air BMI result Body Mass Index 47.4 Const General: healthy appearing, comfortable, no acute distress, alert and awake Nutritional Appearance: well nourished Orientation/consciousness: patient oriented x3 HENMT Head: Yes normocephalic and Yes atraumatic Eyes Eyelids: Yes eyelids normal Conjunctivae: conjunctivae normal Sclerae: sclerae normal Corneas: corneas normal Pupils: Equal, round and reactive pupils present EOM: EOMs intact bilaterally Resp Effort & Inspection: normal respiratory effort, able to speak in complete sentences and not labored Skin Other: Patient has an approximately 4 cm area of erythema to underside of the chin. There is approximately 2 cm area of central induration, no clear fluctuance. There is increased warmth in this area is tender to palpation General skin exam: elasticity normal Neuro General: patient oriented x3 Cranial nerves: Yes Equal, round and reactive pupils present and Yes Bilaterally intact EOM present Cognition (Neuro): normal cognition Course Reevaluation(s) Reevaluation #1: Attempted needle aspiration was unable to aspirate any purulent drainage. Time: 01:03 Medications Administered Discontinued Medications Generic Name Dose Route Start Last Admin Trade Name Freq PRN Reason Stop Dose Admin Lidocaine HCl 2 ml 11/19/22 00:31 11/19/22 00:51 Lidocaine Hcl 1 % Mpf 2 Ml Vial INFILTRATI 11/19/22 00:32 2 ml ONCE ONE Administration Procedures Abscess I/D Site: face (Under side of chin) Local Anesthetic: lidocaine 1% Amount of anesthesia used (mL): 1 Technique: needle aspiration Amount of fluid expressed (mL): 0 Packing used?: none Medical Decision Making Medical Decision Making MDM Narrative: Patient is a small boil on the underside of his chin likely a developing cellulitis/early abscess. Will attempt aspiration, see procedure note. There is no evidence of sepsis, the patient we discharged with oral antibiotics Differential Diagnosis Cellulitis Abscess Phlegmon Sebaceous cyst Ingrown hair Discharge Plan Discharge Clinical Impression: Cellulitis Patient Disposition: Home, Self-Care Instructions: Cellulitis (ED) Additional Instructions: Take cephalexin 4 times daily for the next 7 days. Apply warm compresses every 4 hours for 10-15 minutes Prescriptions: New cephalexin 500 mg capsule 500 mg PO QID Qty: 28 0RF No Action doxycycline hyclate 100 mg capsule 100 mg PO BID 7 Days Qty: 14 0RF cefuroxime axetil 500 mg tablet 500 mg PO BID Qty: 14 0RF doxycycline hyclate 100 mg tablet 100 mg PO BID Qty: 14 0RF ibuprofen 600 mg tablet 600 mg PO Q6H PRN (Reason: fever or pain) Qty: 30 0RF fluconazole [Diflucan] 150 mg tablet 150 mg PO DAILY Qty: 1 0RF Rx Instructions: Take this tablet on 04/26/2022. First dose given on 04/23/2022. clotrimazole 1 % cream 1 appl topical BID Qty: 15 0RF Stand Alone Forms: Work/School Release
[2022-11-19] MEDS: Lidocaine HCl 1 % MPF 2 ML VIAL INFILTRATI (00:51)
[2022-11-19] MEDS: cephALEXin 500 MG CAPSULE PO (01:44)
--- NOTE | 2022-11-19 01:44 | PC.NURSE ---
patient in the process of being discharged
== END 2022-11-19 01:48 | disposition home or self-care (01) ==
PROVIDERS: Emergency Provider Emergency Medicine Emergency Medical Services
DX: L03.211 Cellulitis of face (principal)
CPT/HCPCS: 99283; 99284

== ENCOUNTER 2023-06-09 22:10 | Emergency (ER) | payer SELFPAY ==
[2023-06-09 22:28] VITALS: BP 151/99; PULSE 83; RESP 16; TEMP 37.3; O2SAT 96; BMI 49.2
--- NOTE | 2023-06-09 23:41 | ED.MALEGU ---
HPI - Male Genitourinary General Chief complaint: Urogenital-Male Stated complaint: STD check Time Seen by Provider: 06/09/23 23:07 Source: patient Mode of arrival: ambulatory Limitations: no limitations History of Present Illness HPI Narrative: Patient is a 23 year old male who presents emergency department requesting routine testing for STDs. He states ?I just like to check every once in awhile?. He denies any symptoms. States that he last had unprotected intercourse with his fiancee 3 days ago, but he denies any overt concern for sexually transmitted infections from this partner. He denies any interest in STI prophylaxis. Related Data Previous Rx's Medication Instructions Recorded doxycycline hyclate 100 mg capsule 100 mg PO BID 7 days #14 caps 12/18/21 ibuprofen 600 mg tablet 600 mg PO Q6H PRN fever or pain 04/13/22 #30 tabs cefuroxime axetil 500 mg tablet 500 mg PO BID #14 tabs 04/15/22 doxycycline hyclate 100 mg tablet 100 mg PO BID #14 tabs 04/15/22 fluconazole 150 mg tablet 150 mg PO DAILY #1 tab 04/23/22 (Diflucan) clotrimazole 1 % topical cream 1 appl topical BID #15 grams 07/06/22 cephalexin 500 mg capsule 500 mg PO QID #28 caps 11/19/22 Allergies Allergy/AdvReac Type Severity Reaction Status Date / Time No Known Allergies Allergy Verified 06/09/23 22:27 Review of Systems Review of Systems: Yes all other systems are reviewed and are negative PMFSH Past Medical History Attestation statement: The following information was validated with the patient. Source: old records reviewed Onset Date is defined in the Problem List Problems that require an onset date and time if occurred within 24 hrs of arrival to the ED Aortic Dissection and Rupture; Neurologic impairment; Cardiopulmonary Arrest; Endotracheal Intubation; Insertion or Replacement of Mechanical Circulatory Assist Device Medical History No known health problems Social History Social History Alcohol intake: never Advance Directives: No Advance Directives Information Provided: No Physical Exam Vital Signs: Vital Signs: Last Vital Signs Temp 99.1 F 01/17/24 22:28 Pulse 83 06/09/23 22:28 Resp 16 06/09/23 22:28 BP 151/99 H 06/09/23 22:28 Pulse Ox 96 06/09/23 22:28 O2 Del Method Room Air 06/09/23 22:28 BMI result Body Mass Index 49.2 Appearance: Alert.?Oriented to person, place and time. No acute distress.?Normal affect. Neck: Normal inspection.? Neck supple.?? CVS: Heart sounds normal. Normal heart rate and rhythm.? Pulses normal.?? Respiratory: No respiratory distress.? Lung sounds clear to auscultation bilaterally?? Abdomen: Soft and non-tender. Normoactive bowel sounds. Skin: Skin warm and dry.? Normal skin color.? Extremities: No lower extremity edema.? Neuro: Moves all extremities spontaneously. Sensation intact bilaterally. . Ambulates with normal steady gait. Medical Decision Making Medical Decision Making MDM Narrative: Patient is a 23-year-old male who presents emergency department requesting routine STI testing as per [facility]. Advised patient will test for chlamydia and gonorrhea from the emergency department, results will not be obtained tonight. You will receive a call from the emergency department in the few days if there is any positive result. He declines any interest in prophylactic treatment. He is currently asymptomatic. Physical examination is benign. Advised further follow-up outpatient with primary care provider/ [facility] for full STI panel testing. All questions were answered. Stable for discharge. Differential Diagnosis Differential Diagnoses: The differential diagnosis associated with the presentation includes (Screening for sexually transmitted infection, chlamydia, gonorrhea) Prescription Management I considered prescription management with: Antibiotic (See narrative above) Discharge Plan Discharge Clinical Impression: Encounter for screening examination for sexually transmitted infection Patient Disposition: Home, Self-Care Additional Instructions: Follow-up with your primary care provider or [facility] for additional STD testing. You will receive a call from the emergency department should you have any positive result for the eye and gonorrhea. Return back to emergency department any new or worsening symptoms or concerns. Prescriptions: No Action doxycycline hyclate 100 mg capsule 100 mg PO BID 7 Days Qty: 14 0RF cefuroxime axetil 500 mg tablet 500 mg PO BID Qty: 14 0RF doxycycline hyclate 100 mg tablet 100 mg PO BID Qty: 14 0RF ibuprofen 600 mg tablet 600 mg PO Q6H PRN (Reason: fever or pain) Qty: 30 0RF fluconazole [Diflucan] 150 mg tablet 150 mg PO DAILY Qty: 1 0RF Rx Instructions: Take this tablet on 04/26/2022. First dose given on 04/23/2022. clotrimazole 1 % cream 1 appl topical BID Qty: 15 0RF cephalexin 500 mg capsule 500 mg PO QID Qty: 28 0RF Referrals: Physician,None [Primary Care Provider] -
[2023-06-10 04:43] LABS: CT PCR NOT DETECTED (Not Detect.); NG PCR NOT DETECTED (Not Detect.)
== END 2023-06-10 00:06 | disposition home or self-care (01) ==
PROVIDERS: Emergency Provider Emergency Medicine
DX: Z20.2 Contact with and (suspected) exposure to infections with a predominantly sexual mode of transmission (principal)
CPT/HCPCS: 0353U; 99283; 99284

== ENCOUNTER 2023-10-06 09:06 | Emergency (ER) | payer BC, SELFPAY ==
[2023-10-06 09:35] VITALS: BP 149/95; PULSE 65; RESP 16; TEMP 37.1; O2SAT 98; BMI 43.3
[2023-10-06 14:54] LABS: CT PCR NOT DETECTED (Not Detect.); NG PCR NOT DETECTED (Not Detect.)
== END 2023-10-06 11:38 | disposition left against medical advice (07) ==
PROVIDERS: Emergency Provider Emergency Medicine
DX: R30.0 Dysuria (principal); Z20.2 Contact with and (suspected) exposure to infections with a predominantly sexual mode of transmission; Z53.21 Procedure and treatment not carried out due to patient leaving prior to being seen by health care provider
CPT/HCPCS: 0353U; 99282; 99283

== ENCOUNTER 2023-12-14 17:46 | Emergency (ER) | payer BC, SELFPAY ==
--- NOTE | 2023-12-14 17:50 | ED.MALEGU ---
HPI - Male Genitourinary General Chief complaint: Urogenital-Male Stated complaint: ?UTI Time Seen by Provider: 12/14/23 17:55 Source: patient, RN notes reviewed and old records reviewed Mode of arrival: ambulatory History of Present Illness ED Provider: Rosangela Price PA-C HPI Narrative: 23 year-old M w/no sig PMHx presenting to the ED c/o requesting UA & STI testing. States is sexually active w/1 partner & found out he was cheated on so wants to be checked. Denies sx at present including dysuria, hematuria, lesions, discharge, abdominal pain, N/V Related Data Previous Rx's ?Medication ?Instructions ?Recorded doxycycline hyclate 100 mg capsule 100 mg PO BID 7 days #14 caps 12/18/21 ibuprofen 600 mg tablet 600 mg PO Q6H PRN fever or pain 04/13/22 #30 tabs cefuroxime axetil 500 mg tablet 500 mg PO BID #14 tabs 04/15/22 doxycycline hyclate 100 mg tablet 100 mg PO BID #14 tabs 04/15/22 fluconazole 150 mg tablet 150 mg PO DAILY #1 tab 04/23/22 (Diflucan) clotrimazole 1 % topical cream 1 appl topical BID #15 grams 07/06/22 cephalexin 500 mg capsule 500 mg PO QID #28 caps 11/19/22 cefuroxime axetil 250 mg tablet 250 mg PO BID 7 days #14 tabs 12/14/23 doxycycline hyclate 100 mg tablet 100 mg PO BID 7 days #14 tabs 12/14/23 Allergies Allergy/AdvReac Type Severity Reaction Status Date / Time No Known Allergies Allergy Verified 12/14/23 17:52 Review of Systems Review of Systems: Constitutional: No Fever, No Chills Cardiovascular: No Chest Pain, No SOB Respiratory: No Cough Gastrointestinal: No Nausea, No Vomiting, No Diarrhea, No Constipation, No Abdominal pain Genitourinary: No Dysuria, No Urinary Frequency, No Hematuria, No Flank Pain Musculoskeletal: No joint pain, No Myalgias, No Joint Swelling Skin: No Skin Lesions, No rash Neuro: No Weakness Yes all other systems are reviewed and are negative Constitutional: Constitutional: Reports as per [facility] Past Medical History Attestation statement: The following information was validated with the patient. Source: old records reviewed Medical History No known health problems Social History Social History Alcohol intake: never Substance Use Type: Marijuana Advance Directives: No Advance Directives Information Provided: No Physical Exam Vital Signs: Vital Signs: Last Vital Signs Temp 99.1 F 12/14/23 19:31 Pulse 70 12/14/23 19:31 Resp 18 12/14/23 19:31 BP 125/60 12/14/23 19:31 Pulse Ox 95 12/14/23 19:31 O2 Del Method Room Air 12/14/23 19:31 BMI result Body Mass Index 42.7 Const: General: cooperative, healthy appearing and no acute distress Orientation/consciousness: patient oriented x3 Limitations: no limitations HEENT: Head: Yes normal to inspection and Yes atraumatic Ears: hearing grossly normal bilaterally General nose exam: Normal external nose present Face and sinus: Yes normal facial exam Eyes: General: appearance normal, both eyes and all related structures EOM: EOMs intact bilaterally Neck: Neck: Yes normal visual inspection and Yes no meningeal signs Resp: Effort & Inspection: normal respiratory effort and no respiratory distress Cardio: Rate: regular rate GI: Inspection: Yes normal to inspection Palpation (GI): Soft to palpation, nontender, no guarding and not rigid : General: Yes no CVA tenderness Back/Spine/Pelvis: Back: no CVA tenderness Skin: Rashes: no rashes Wounds: no wounds Neuro: General: patient oriented x3, tone normal and no meningeal signs Cranial nerves: Yes CN's II-XII intact bilaterally Gait exam (Neuro): Normal gait present Extrem: General: Yes normal to inspection Course Course Course Narrative: This is a Rapid Medical Exam performed in triage by Rosangela Price PA-C. Full HPI, ROS and PE to be performed by primary ED provider. 23 year-old M w/no sig PMHx presenting to the ED c/o requesting UA & STI testing. States is sexually active w/1 partner, & found out he was cheated on so wants to be checked. Denies sx at present including dysuria, hematuria, lesions, discharge, abdominal pain at present. PE: Abdomen soft & nontender Plan: UA, STI testing, agreeable to empiric tx -UA infected will treat with p.o. Ceftin Results discussed with patient including worrisome signs and symptoms and strict return precautions, and when to return to the emergency department. They verbalized understanding and feel safe for discharge at this time. Medications Administered Discontinued Medications Generic Name Dose Route Start Last Admin Trade Name Kandace PRN Reason Stop Dose Admin Ceftriaxone Sodium 500 mg/ 0 mg 12/14/23 17:54 12/14/23 18:16 Lidocaine HCl 1 ml IM 12/14/23 17:55 1 kit ONCE ONE Administration Doxycycline Monohydrate 100 mg 12/14/23 17:54 12/14/23 18:15 Doxycycline Monohydrate 100 Mg Capsule PO 12/14/23 17:55 100 mg ONCE ONE Administration Medical Decision Making Medical Decision Making [facility] Narrative: 23 year-old M w/no sig PMHx presenting to the ED c/o requesting UA & STI testing. States is sexually active w/1 partner & found out he was cheated on so wants to be checked. Denies sx at present. On exam vital signs stable, NAD, nontoxic appearing, abdomen soft/nontender. Concern for UTI vs STI. Low suspicion for testicular torsion, appendicitis/diverticulitis plan: UA, STI testing. > Patient agreeable to empiric STI treatment with IM Rocephin and p.o. doxycycline in the ED Please refer to course for remaining clinical decision making, interpretation of labs/imaging results, and discussions with consultants and/or family members. Differential Diagnosis Differential Diagnoses: The differential diagnosis associated with the presentation includes As above Lab Data [facility] Lab Attestation statement: I reviewed the patient's lab results. Labs: Lab Results 12/14/23 Range/Units 19:11 Urine Color Yellow Urine Appearance Turbid Urine pH 8.0 (5.0-9.0) Ur Specific [place] 1.025 (1.005-1.025) Urine Protein Trace (Neg-Trace) mg/dL Urine Glucose (UA) Negative (Negative) mg/dL Urine Ketones Trace (Negative) mg/dL Urine Blood Negative (Negative) Urine Nitrite Negative (Negative) Ur Leukocyte Esterase Moderate (2+) H (Negative) Urine RBC 0-2 (0-2) /HPF Urine WBC 21-50 H (0-5) /HPF Ur Squamous Epith Cells 0-2 (0-2) /HPF Urine Bacteria None Seen (None Seen) Hyaline Casts 0-2 (0-2) /LPF External Record Review External record reviewed: Inpatient record, Office record, Outpatient record, Prior outpatient labs, Prior outpatient radiology, Primary care record and Outside ED record Tests considered The following testing was considered but not selected: As above Prescription Management I considered prescription management with: Pain Medication and Antibiotic Discharge Plan Discharge Clinical Impression: Urinary tract infection Patient Disposition: Home, Self-Care Instructions: Urinary Tract Infection in Men (DC) Additional Instructions: You have a urine infection. Ceftin is an antibiotic please take as prescribed In addition we tested you for gonorrhea and chlamydia, these results will be back in 48-72 hours. You will be contacted with positive results only Please avoid any sexual contact until you have the results of your cultures Continue taking doxycycline for treatment of chlamydia Follow-up with [facility] for further STI testing Prescriptions: New cefuroxime axetil 250 mg tablet 250 mg PO BID 7 Days Qty: 14 0RF doxycycline hyclate 100 mg tablet 100 mg PO BID 7 Days Qty: 14 0RF No Action doxycycline hyclate 100 mg capsule 100 mg PO BID 7 Days Qty: 14 0RF cefuroxime axetil 500 mg tablet 500 mg PO BID Qty: 14 0RF doxycycline hyclate 100 mg tablet 100 mg PO BID Qty: 14 0RF ibuprofen 600 mg tablet 600 mg PO Q6H PRN (Reason: fever or pain) Qty: 30 0RF fluconazole [Diflucan] 150 mg tablet 150 mg PO DAILY Qty: 1 0RF Rx Instructions: Take this tablet on 04/26/2022. First dose given on 04/23/2022. clotrimazole 1 % cream 1 appl topical BID Qty: 15 0RF cephalexin 500 mg capsule 500 mg PO QID Qty: 28 0RF Referrals: [facility] [Provider Group] Print Language: Algerian
[2023-12-14 17:51] VITALS: BP 149/94; PULSE 94; RESP 16; TEMP 37.5; O2SAT 98; BMI 42.7
[2023-12-14] MEDS: Doxycycline Monohydrate 100 MG CAPSULE PO (18:15)
[2023-12-14] MEDS: cefTRIAXone sodium 500 MG, Lidocaine HCl 1 % MPF 1 ML IM (18:16)
[2023-12-14 19:22] LABS: Appearance Urine Turbid; Color Urine Yellow; Glucose Urine UA Negative (Negative); Leukocyte Esterase Urine Moderate (2+) (Negative); Nitrite Urine Negative (Negative); Specific Gravity - Urine 1.025 (1.005-1.025); UMIC TRIGGER UACC YES; Urine Blood Negative (Negative); Urine Ketones Trace mg/dL (Negative); Urine Protein Trace mg/dL (Neg-Trace)
[2023-12-14 19:29] LABS: Bacteria Urine None Seen (None Seen); Hyaline Casts Urine 0-2 /LPF (0-2); RBC Urine 0-2 /HPF (0-2); Squamous Epithelial Cell Urine 0-2 /HPF (0-2); UACC Culture Trigger YES; WBC Urine 21-50 /HPF (0-5)
[2023-12-14 19:31] VITALS: BP 125/60; PULSE 70; RESP 18; TEMP 37.3; O2SAT 95
[2023-12-14 20:53] VITALS: BP 125/60; PULSE 70; RESP 18; TEMP 37.3; O2SAT 95
[2023-12-15 12:15] LABS: CT PCR NOT DETECTED (Not Detect.); NG PCR NOT DETECTED (Not Detect.)
== END 2023-12-14 20:54 | disposition home or self-care (01) ==
PROVIDERS: Physician Assistant; Emergency Provider Emergency Medicine
DX: N39.0 Urinary tract infection, site not specified (principal); Z20.2 Contact with and (suspected) exposure to infections with a predominantly sexual mode of transmission
CPT/HCPCS: 81001; 87086; 87491; 87591; 96372; 99283; 99284; J0696

== ENCOUNTER 2024-01-15 09:16 | Emergency (ER) | payer BC, SELFPAY ==
[2024-01-15 09:23] VITALS: BP 151/95; PULSE 66; RESP 20; TEMP 36.6; O2SAT 99; BMI 43.0
[2024-01-15 09:42] LABS: Appearance Urine Turbid; Color Urine Yellow; Glucose Urine UA Negative (Negative); Leukocyte Esterase Urine Moderate (2+) (Negative); Nitrite Urine Positive (Negative); Specific Gravity - Urine 1.015 (1.005-1.025); UMIC TRIGGER UACC YES; Urine Blood Negative (Negative); Urine Ketones Negative (Negative); Urine Protein Negative (Neg-Trace)
[2024-01-15 09:46] LABS: Bacteria Urine 4+ (None Seen); Hyaline Casts Urine 0-2 /LPF (0-2); RBC Urine 0-2 /HPF (0-2); Squamous Epithelial Cell Urine 0-2 /HPF (0-2); UACC Culture Trigger YES; WBC Urine 21-50 /HPF (0-5)
--- NOTE | 2024-01-15 09:53 | ED.MALEGU ---
HPI - Male Genitourinary General Chief complaint: Urogenital-Male Stated complaint: UTI Time Seen by Provider: 01/15/24 09:36 Source: patient Mode of arrival: ambulatory Limitations: no limitations History of Present Illness ED Provider: Trenton Lemons PA-C HPI Narrative: Male presents the ER for evaluation of pain with urination for the last 3 days. He also reports pain in his left lower abdomen. He went to the [facility] yesterday where he had STI testing done that was negative. He states the pain in the abdomen is worse with urination. He denies any blood in his urine. He is having normal bowel movements and is not having any nausea, vomiting or diarrhea. No fever or chills. Denies any urethral discharge. No testicle pain or swelling. MD Complaint: dysuria Onset (ago): day(s) (3) Duration: intermittent Severity: moderate Quality: burning Relieving factors: none Exacerbating factors: urination Associated symptoms: Reports dysuria Related Data Previous Rx's ?Medication ?Instructions ?Recorded doxycycline hyclate 100 mg capsule 100 mg PO BID 7 days #14 caps 12/18/21 ibuprofen 600 mg tablet 600 mg PO Q6H PRN fever or pain 04/13/22 #30 tabs cefuroxime axetil 500 mg tablet 500 mg PO BID #14 tabs 04/15/22 doxycycline hyclate 100 mg tablet 100 mg PO BID #14 tabs 04/15/22 fluconazole 150 mg tablet 150 mg PO DAILY #1 tab 04/23/22 (Diflucan) clotrimazole 1 % topical cream 1 appl topical BID #15 grams 07/06/22 cephalexin 500 mg capsule 500 mg PO QID #28 caps 11/19/22 cefuroxime axetil 250 mg tablet 250 mg PO BID 7 days #14 tabs 12/14/23 doxycycline hyclate 100 mg tablet 100 mg PO BID 7 days #14 tabs 12/14/23 nitrofurantoin 100 mg PO Q12H 7 days #14 caps 01/15/24 monohydrate/macrocrystals 100 mg capsule (Macrobid) Allergies Allergy/AdvReac Type Severity Reaction Status Date / Time No Known Allergies Allergy Verified 01/15/24 09:26 Review of Systems Review of Systems: Yes all other systems are reviewed and are negative PMFSH Past Medical History Medical History No known health problems Social History Social History Alcohol intake: never Substance Use Type: Marijuana Advance Directives: No Advance Directives Information Provided: No Physical Exam Vital Signs: Vital Signs: Last Vital Signs Temp 97.9 F 01/15/24 09:23 Pulse 66 01/15/24 09:23 Resp 20 01/15/24 09:23 BP 151/95 H 01/15/24 09:23 Pulse Ox 99 01/15/24 09:23 O2 Del Method Room Air 01/15/24 09:23 BMI result Body Mass Index 43.0 Appearance: Alert. Oriented X3. No acute distress. HEENT: normal external inspection Neck: Normal inspection. Neck supple. CVS: Normal heart rate and rhythm. Pulses normal. Respiratory: No respiratory distress. Breath sounds normal. Abdomen: Obese, Soft and nontender. +BS x4 Skin: Skin warm and dry. Normal skin color. Normal skin turgor. No rashes. Extremities: No lower extremity edema. No joint swelling. Neuro/psych: Oriented X 3. grossly normal, nonfocal Medical Decision Making Medical Decision Making MDM Narrative: 23-year-old male presents to the ER for evaluation of dysuria for the last 3 days along with some mild left lower quadrant pain. His physical exam is unremarkable with a nontender abdomen. His vital signs are stable. He appears well. Had recent negative STI testing at local [facility]. Denies any symptoms of urethritis. Low clinical suspicion for prostatitis. Urinalysis is positive for infection with positive nitrites. Will treat patient for acute simple cystitis with nitrofurantoin x7 days. Encouraged follow-up with PCP. We talked about return precautions. Stable for discharge home Differential Diagnosis Differential Diagnoses: The differential diagnosis associated with the presentation includes UTI, STI, prostatitis, diverticulitis, colitis Lab Data MDM Lab Attestation statement: I reviewed the patient's lab results. Positive urinalysis consistent with infection Labs: Lab Results 01/15/24 Range/Units 09:34 Urine Color Yellow Urine Appearance Turbid Urine pH 7.0 (5.0-9.0) Ur Specific [place] 1.015 (1.005-1.025) Urine Protein Negative (Neg-Trace) mg/dL Urine Glucose (UA) Negative (Negative) mg/dL Urine Ketones Negative (Negative) mg/dL Urine Blood Negative (Negative) Urine Nitrite Positive H (Negative) Ur Leukocyte Esterase Moderate (2+) H (Negative) Urine RBC 0-2 (0-2) /HPF Urine WBC 21-50 H (0-5) /HPF Ur Squamous Epith Cells 0-2 (0-2) /HPF Urine Bacteria 4+ (None Seen) Hyaline Casts 0-2 (0-2) /LPF External Record Review External record reviewed: Prior outpatient labs Prescription Management I considered prescription management with: Pain Medication and Antibiotic Critical Care Time Critical Care Time Critical Care Time: No Discharge Plan Discharge Clinical Impression: Urinary tract infection Patient Disposition: Home, Self-Care Instructions: Urinary Tract Infection in Men (DC) Additional Instructions: You were found have urinary tract infection. Take the prescribed antibiotics as directed, complete the entire course and do not miss any doses Drink plenty of water and stay hydrated. Follow-up with your doctor. If you develop new or worsening symptoms call 911 or come back to the ER for further evaluation. Prescriptions: New nitrofurantoin monohyd/m-cryst [Macrobid] 100 mg capsule 100 mg PO Q12H 7 Days Qty: 14 0RF Rx Instructions: must administer with a meal/food No Action doxycycline hyclate 100 mg capsule 100 mg PO BID 7 Days Qty: 14 0RF cefuroxime axetil 500 mg tablet 500 mg PO BID Qty: 14 0RF doxycycline hyclate 100 mg tablet 100 mg PO BID Qty: 14 0RF ibuprofen 600 mg tablet 600 mg PO Q6H PRN (Reason: fever or pain) Qty: 30 0RF fluconazole [Diflucan] 150 mg tablet 150 mg PO DAILY Qty: 1 0RF Rx Instructions: Take this tablet on 04/26/2022. First dose given on 04/23/2022. clotrimazole 1 % cream 1 appl topical BID Qty: 15 0RF cephalexin 500 mg capsule 500 mg PO QID Qty: 28 0RF cefuroxime axetil 250 mg tablet 250 mg PO BID 7 Days Qty: 14 0RF doxycycline hyclate 100 mg tablet 100 mg PO BID 7 Days Qty: 14 0RF Print Language: Georgian
[2024-01-15 10:17] VITALS: BP 148/88; PULSE 64; RESP 18; TEMP 36.7; O2SAT 98
== END 2024-01-15 10:17 | disposition home or self-care (01) ==
PROVIDERS: Emergency Provider Emergency Medicine
DX: N39.0 Urinary tract infection, site not specified (principal); R10.32 Left lower quadrant pain
CPT/HCPCS: 81001; 87086; 87088; 87186; 99282; 99283

== ENCOUNTER 2024-05-01 22:37 | Emergency (ER) | payer BC, SELFPAY ==
[2024-05-01 23:08] VITALS: BP 153/81; PULSE 67; RESP 20; TEMP 36.4; O2SAT 98; BMI 42.6
[2024-05-01 23:33] LABS: Basophils Percent Auto 0.5 % (0-2); Eosinophils Percent Auto 0.6 % (0-4); Hematocrit 40.5 % (42.0-52.0); Hemoglobin 13.8 g/dl (14.0-18.0); Imm Gran Abs Auto 0.01 X10*3/uL (0.00-0.03); Imm Gran Pct Auto 0.2 % (0.0-0.4); Lymphocytes Absolute Auto 2.3 X10*3/uL (1.2-4.9); Lymphocytes Percent Auto 36.1 % (20-40); MANUAL DIFF FLAG NO; Mean Corpuscular HGB Conc 34.1 g/dl (31.0-36.0); Mean Corpuscular Hemoglobin 28.3 pg (27.0-33.0); Mean Platelet Volume 9.2 fL (9.4-12.4); Monocytes Absolute Auto 0.4 X10*3/uL (0.1-1.2); Monocytes Percent Auto 5.5 % (2-11); Neutrophils Absolute Auto 3.6 x10*3/uL (2.0-8.3); Neutrophils Percent Auto 57.1 % (45-73); Platelet Count 252 X10*3/uL (160-400); Red Blood Count 4.88 X10*6/uL (4.60-5.80); Red Cell Distribution Width 12.8 % (11.0-16.0); White Blood Count 6.3 X10*3/uL (4.8-10.8)
[2024-05-01 23:34] LABS: Appearance Urine Cloudy; Color Urine Yellow; Glucose Urine UA Negative (Negative); Leukocyte Esterase Urine Small (1+) (Negative); Nitrite Urine Negative (Negative); Specific Gravity - Urine 1.025 (1.005-1.025); UMIC TRIGGER UACC YES; Urine Blood Negative (Negative); Urine Ketones Trace mg/dL (Negative); Urine Protein Negative (Neg-Trace)
[2024-05-01 23:37] LABS: Bacteria Urine Trace (None Seen); Hyaline Casts Urine 0-2 /LPF (0-2); RBC Urine 0-2 /HPF (0-2); Squamous Epithelial Cell Urine 0-2 /HPF (0-2); UACC Culture Trigger YES; WBC Urine 21-50 /HPF (0-5)
[2024-05-01 23:45] LABS: Alanine Aminotransferase 38 U/L (0-40); Albumin Level 3.8 g/dL (3.5-5.0); Alkaline Phosphatase 61 U/L (39-117); Anion Gap 11 (12-20); Aspartate Amino Transferase 38 U/L (5-37); Bilirubin Total 0.6 mg/dL (0.0-1.0); Blood Urea Nitrogen 9 mg/dL (9-16); Carbon Dioxide 28 mmol/L (22-29); Chloride 107 mmol/L (96-108); Creatinine Clr Calc Pharmacy 172.1; Estimated Glomerular Filt Rate > 60; Glucose Random 104 mg/dL (60-115); Potassium 3.9 mmol/L (3.3-5.1); Sodium 142 mmol/L (135-145); Total Protein 6.5 g/dL (6.5-8.0)
--- NOTE | 2024-05-02 01:57 | ED.MALEGU ---
HPI - Male Genitourinary General Chief complaint: Abdominal Pain Stated complaint: abd pain Time Seen by Provider: 05/02/24 01:49 Source: patient and old records reviewed Mode of arrival: ambulatory Limitations: no limitations History of Present Illness ED Provider: IVY JOYA Narrative: 24 yo male with PMH of UTI here with c/o dysuria, burning pain and frequency for 1 day. No fevers, n/v or back pain. He notes he thinks he has a UTI has had this before. Has never seen a urologist last time he was here E. Coli moreno sensitive. Denies any concern for STI. No reported rash or discharge MD Complaint: dysuria Onset (ago): day(s) (1) Duration: intermittent Location: penis Severity: mild Quality: burning Relieving factors: none Exacerbating factors: urination Context: other (hx of UTI) Associated symptoms: Reports dysuria Related Data Previous Rx's ?Medication ?Instructions ?Recorded doxycycline hyclate 100 mg capsule 100 mg PO BID 7 days #14 caps 12/18/21 ibuprofen 600 mg tablet 600 mg PO Q6H PRN fever or pain 04/13/22 #30 tabs cefuroxime axetil 500 mg tablet 500 mg PO BID #14 tabs 04/15/22 doxycycline hyclate 100 mg tablet 100 mg PO BID #14 tabs 04/15/22 fluconazole 150 mg tablet 150 mg PO DAILY #1 tab 04/23/22 (Diflucan) clotrimazole 1 % topical cream 1 appl topical BID #15 grams 07/06/22 cephalexin 500 mg capsule 500 mg PO QID #28 caps 11/19/22 cefuroxime axetil 250 mg tablet 250 mg PO BID 7 days #14 tabs 12/14/23 doxycycline hyclate 100 mg tablet 100 mg PO BID 7 days #14 tabs 12/14/23 nitrofurantoin 100 mg PO Q12H 7 days #14 caps 01/15/24 monohydrate/macrocrystals 100 mg capsule (Macrobid) cefuroxime axetil 250 mg tablet 250 mg PO BID 7 days #14 tabs 05/02/24 Allergies Allergy/AdvReac Type Severity Reaction Status Date / Time No Known Allergies Allergy Verified 05/01/24 23:10 Review of Systems Review of Systems: Constitutional : No Fever, No Chills, No Fatigue ENT/Mouth : No sore throat, No Rhinorrhea Eyes: No Eye Pain, No Swelling, No Redness Cardiovascular : No Chest Pain, No SOB, No Dyspnea on Exertion Respiratory : No Cough, No Sputum Gastrointestinal : No Nausea, No Vomiting, No Diarrhea, No abdominal Pain Genitourinary : pos Dysuria, pos Urinary Frequency, No Hematuria, Musculoskeletal : No joint pain, No Myalgias, No Joint Swelling Skin : No Skin Lesions, No rash Neuro : No Weakness, No Numbness, No Dizziness, positive Headache All other systems reviewed and are negative [facility] Past Medical History Attestation statement: The following information was validated with the patient. Source: old records reviewed Medical History No known health problems Social History Social History Alcohol intake: never Substance Use Type: Marijuana Advance Directives: No Advance Directives Information Provided: Yes Do you have a plan to hurt others: No Plan Physical Exam Vital Signs: Vital Signs: Last Vital Signs Temp 97.6 F 05/01/24 23:08 Pulse 67 05/01/24 23:08 Resp 20 05/01/24 23:08 BP 153/81 H 05/01/24 23:08 Pulse Ox 98 05/01/24 23:08 O2 Del Method Room Air 05/01/24 23:08 BMI result Body Mass Index 42.6 Appearance: Alert. Oriented X3. No acute distress. Eyes: Pupils equal, round and reactive to light. ENT: Pharynx normal. Neck: Normal inspection. Neck supple. CVS: Normal heart rate and rhythm. Pulses normal. Respiratory: No respiratory distress. Breath sounds normal. Abdomen: Soft and nontender. no CVA ttp Skin: Skin warm and dry. Normal skin color. Extremities: No lower extremity edema. Neuro: Oriented X 3. No motor deficit. No sensory deficit. Medical Decision Making Medical Decision Making MDM Narrative: 24 yo male with PMH of E. Coli S UTI at this time he has dysuria, frequency, but no pain, n/v or fevers. He will need to start on ceftin and then plan to DC with outpatient follow up given no risk factors for UTI reported. No concern for STI. Differential Diagnosis Differential Diagnoses: The differential diagnosis associated with the presentation includes acute uti, no CVA ttp or abd flank pain to suggest renal colic or pyelo Admission/Observation Consideration of admission/observation: Escalation of care including admission/observation considered not toxic, tolerating PO stable for DC Lab Data MDM Lab Attestation statement: I reviewed the patient's lab results. 05/01/24 23:24 05/01/24 23:24 Labs: Lab Results 05/01/24 Range/Units 23:24 WBC 6.3 (4.8-10.8) X10*3/uL RBC 4.88 (4.60-5.80) X10*6/uL Hgb 13.8 L (14.0-18.0) g/dl Hct 40.5 L (42.0-52.0) % MCV 83.0 (80.0-98.0) fL MCH 28.3 (27.0-33.0) pg MCHC 34.1 (31.0-36.0) g/dl RDW 12.8 (11.0-16.0) % Plt Count 252 (160-400) X10*3/uL MPV 9.2 L (9.4-12.4) fL Immature Gran % (Auto) 0.2 (0.0-0.4) % Neut % (Auto) 57.1 (45-73) % Lymph % (Auto) 36.1 (20-40) % [place] % (Auto) 5.5 (2-11) % Eos % (Auto) 0.6 (0-4) % Baso % (Auto) 0.5 (0-2) % Lymph # (Auto) 2.3 (1.2-4.9) X10*3/uL [place] # (Auto) 0.4 (0.1-1.2) X10*3/uL Eos # (Auto) 0.0 (0.0-0.4) X10*3/uL Baso # (Auto) 0.0 (0.0-0.2) X10*3/uL Abs Immat Gran (auto) 0.01 (0.00-0.03) X10*3/uL Absolute Neuts (auto) 3.6 (2.0-8.3) x10*3/uL Absolute Nucleated RBC 0.000 (0.0-0.012) X10*3/uL Nucleated RBC % (auto) 0.0 (0.0-0.2) /100WBC Sodium 142 (135-145) mmol/L Potassium 3.9 (3.3-5.1) mmol/L Chloride 107 (96-108) mmol/L Carbon Dioxide 28 (22-29) mmol/L Anion Gap 11 L (12-20) BUN 9 (9-16) mg/dL Creatinine 0.78 (0.5-1.4) mg/dL Estim Creat Clear Calc 172.1 Estimated GFR > 60 Random Glucose 104 (60-115) mg/dL Calcium 9.0 (8.4-10.2) mg/dL Total Bilirubin 0.6 (0.0-1.0) mg/dL AST 38 H (5-37) U/L ALT 38 (0-40) U/L Alkaline Phosphatase 61 (39-117) U/L Total Protein 6.5 (6.5-8.0) g/dL Albumin 3.8 (3.5-5.0) g/dL Urine Color Yellow Urine Appearance Cloudy Urine pH 7.0 (5.0-9.0) Ur Specific [place] 1.025 (1.005-1.025) Urine Protein Negative (Neg-Trace) mg/dL Urine Glucose (UA) Negative (Negative) mg/dL Urine Ketones Trace (Negative) mg/dL Urine Blood Negative (Negative) Urine Nitrite Negative (Negative) Ur Leukocyte Esterase Small (1+) H (Negative) Urine RBC 0-2 (0-2) /HPF Urine WBC 21-50 H (0-5) /HPF Ur Squamous Epith Cells 0-2 (0-2) /HPF Urine Bacteria Trace (None Seen) Hyaline Casts 0-2 (0-2) /LPF External Record Review External record reviewed: Outpatient record and Prior outpatient labs Prescription Management I considered prescription management with: Antibiotic Discharge Plan Discharge Clinical Impression: Acute UTI Patient Disposition: Home, Self-Care Instructions: Urinary Tract Infection in Men (ED) Additional Instructions: finish antibiotics return for any worsening symptoms or concerns stay hydrated follow up with urologist return for fevers, vomiting severe pain or any other concerns On a cephalosporin?antibiotic, softer bowel movements are to be expected. Call your provider if you move your bowels more than 4 times a day, your bowel movements are almost all liquid, or you get a rash.?? Prescriptions: New cefuroxime axetil 250 mg tablet 250 mg PO BID 7 Days Qty: 14 0RF No Action doxycycline hyclate 100 mg capsule 100 mg PO BID 7 Days Qty: 14 0RF cefuroxime axetil 500 mg tablet 500 mg PO BID Qty: 14 0RF doxycycline hyclate 100 mg tablet 100 mg PO BID Qty: 14 0RF ibuprofen 600 mg tablet 600 mg PO Q6H PRN (Reason: fever or pain) Qty: 30 0RF fluconazole [Diflucan] 150 mg tablet 150 mg PO DAILY Qty: 1 0RF Rx Instructions: Take this tablet on 04/26/2022. First dose given on 04/23/2022. clotrimazole 1 % cream 1 appl topical BID Qty: 15 0RF cephalexin 500 mg capsule 500 mg PO QID Qty: 28 0RF cefuroxime axetil 250 mg tablet 250 mg PO BID 7 Days Qty: 14 0RF doxycycline hyclate 100 mg tablet 100 mg PO BID 7 Days Qty: 14 0RF nitrofurantoin monohyd/m-cryst [Macrobid] 100 mg capsule 100 mg PO Q12H 7 Days Qty: 14 0RF Rx Instructions: must administer with a meal/food Referrals: [facility] [Provider Group] Print Language: Ugandan
[2024-05-02] MEDS: cefuroxime axetiL 250 MG TABLET PO (02:32)
[2024-05-02 02:33] VITALS: BP 140/77; PULSE 68; RESP 18; TEMP 36.3; O2SAT 98
== END 2024-05-02 02:34 | disposition home or self-care (01) ==
PROVIDERS: Emergency Provider Emergency Medicine
DX: N39.0 Urinary tract infection, site not specified (principal); R30.0 Dysuria
CPT/HCPCS: 36415; 80053; 81001; 85025; 87086; 87088; 87186; 99282; 99283

== ENCOUNTER 2024-06-08 01:17 | Emergency (ER) | payer SELFPAY ==
[2024-06-08 01:19] VITALS: BP 109/76; PULSE 75; RESP 18; TEMP 36.8; O2SAT 96; BMI 36.1
--- NOTE | 2024-06-08 03:29 | ED_ITS ---
HPI - Allergic Reaction General Chief complaint: Allergic Reaction Stated complaint: allergic reaction? Time Seen by Provider: 06/08/24 03:21 Source: patient Limitations: no limitations History of Present Illness ED Provider: Kristy Serrano PA-C HPI narrative: 24-year-old male presents with rash x3 days. Patient has pruritic, raised, red spots over upper, extremities , torso and legs. No one else has the same rash. Denies new body products, food, medication. Denies swelling of lips or tongue. Patient also complains of a sore throat over the past few days. Denies dysphagia, cough cold symptoms or fever. Related Data Previous Rx's ?Medication ?Instructions ?Recorded doxycycline hyclate 100 mg capsule 100 mg PO BID 7 days #14 caps 12/18/21 ibuprofen 600 mg tablet 600 mg PO Q6H PRN fever or pain 04/13/22 #30 tabs cefuroxime axetil 500 mg tablet 500 mg PO BID #14 tabs 04/15/22 doxycycline hyclate 100 mg tablet 100 mg PO BID #14 tabs 04/15/22 fluconazole 150 mg tablet 150 mg PO DAILY #1 tab 04/23/22 (Diflucan) clotrimazole 1 % topical cream 1 appl topical BID #15 grams 07/06/22 cephalexin 500 mg capsule 500 mg PO QID #28 caps 11/19/22 cefuroxime axetil 250 mg tablet 250 mg PO BID 7 days #14 tabs 12/14/23 doxycycline hyclate 100 mg tablet 100 mg PO BID 7 days #14 tabs 12/14/23 nitrofurantoin 100 mg PO Q12H 7 days #14 caps 01/15/24 monohydrate/macrocrystals 100 mg capsule (Macrobid) cefuroxime axetil 250 mg tablet 250 mg PO BID 7 days #14 tabs 05/02/24 Allergies Allergy/AdvReac Type Severity Reaction Status Date / Time No Known Allergies Allergy Verified 06/08/24 01:23 Review of Systems Review of Systems: Yes all other systems are reviewed and are negative Constitutional: Constitutional: Denies fatigue, Denies fever(s) and Denies malaise ENT: Reports sore throat Cardiovascular: Cardiovascular: Denies chest pain and Denies dyspnea Respiratory: Respiratory: Denies cough, Denies dyspnea and Denies wheezing Integumentary/Breasts: Skin/Breast: Reports dry skin, Reports pruritus, Reports new lesions and Reports rash Endocrine: Endocrine: Denies fatigue Allergic/Immunologic: Allergic/Immunologic: Denies wheezing PMFSH Past Medical History Attestation statement: The following information was validated with the patient. Medical History No known health problems Social History Social History Alcohol intake: never Substance Use Type: Marijuana Advance Directives: No Advance Directives Information Provided: Yes Physical Exam ED Vital Signs: Vital Signs - 24 hr 06/08/24 01:19 Temperature 98.3 F Pulse Rate 75 Respiratory Rate 18 Blood Pressure 109/76 Pulse Oximetry 96 Oxygen Delivery Method Room Air BMI result Body Mass Index 36.1 Const Other: Alert well-appearing Orientation/consciousness: patient oriented x3 HENAR Other: Oropharynx is mildly erythematous without exudate, uvula midline, no angioedema of lips, tongue is not swollen Neck Other: No cervical lymphadenopathy Resp Effort & Inspection: normal respiratory effort Cardio Other: Normal peripheral perfusion Skin Other: Scattered raised, dry, circular lesions that are erythematous noted over torso upper extremities lower extremities, they do not coalesce they are not vesicular, Neuro General: patient oriented x3, no focal motor deficits and CN's II-XI intact bilaterally Psych Other: Calm cooperative Medical Decision Making Medical Decision Making MDM Narrative: 24-year-old male presents with rash x3 days. Patient has pruritic, raised, red spots over upper, extremities , torso and legs. No one else has the same rash. Denies new body products, food, medication. Denies swelling of lips or tongue. Patient also complains of a sore throat over the past few days. Denies dysphagia, cough cold symptoms or fever. No chronic issues History: Per patient I have considered the following differential diagnoses: Allergic reaction, anaphylaxis, angioedema, contact dermatitis, eczema, scabies, bedbugs, urticaria, Plan: I believe the rash to be independent of his sore throat. In regard to the rash, it appears to be dry skin/eczema. We will send with home care instructions. In regard to the sore throat, it is likely viral, he is afebrile, without lymphadenopathy, with an unremarkable exam, doubtful to be strep pharyngitis. We will send with home care instructions. Discharge Plan Discharge Clinical Impression: Eczema, Sore throat (viral) Patient Disposition: Home, Self-Care Instructions: Cold Compress or Soak (ED), Dyshidrotic Eczema (ED), Pharyngitis (ED) Additional Instructions: The rash that you have is likely eczema, see home care instructions. You can apply small amounts of [id number] hydrocortisone cream to the spots that are bothersome, can be done twice a day. In addition use [id number] moisturizing products such as Aveeno body wash and Aveeno lotion. When you shower, use cool water versus hot water. In regard to your sore throat, this is likely viral, see home care instructions. Warm saltwater gargles can help alleviate your discomfort. Follow up with your primary care provider as needed. Prescriptions: No Action doxycycline hyclate 100 mg capsule 100 mg PO BID 7 Days Qty: 14 0RF cefuroxime axetil 500 mg tablet 500 mg PO BID Qty: 14 0RF doxycycline hyclate 100 mg tablet 100 mg PO BID Qty: 14 0RF ibuprofen 600 mg tablet 600 mg PO Q6H PRN (Reason: fever or pain) Qty: 30 0RF fluconazole [Diflucan] 150 mg tablet 150 mg PO DAILY Qty: 1 0RF Rx Instructions: Take this tablet on 04/26/2022. First dose given on 04/23/2022. clotrimazole 1 % cream 1 appl topical BID Qty: 15 0RF cefuroxime axetil 250 mg tablet 250 mg PO BID 7 Days Qty: 14 0RF cephalexin 500 mg capsule 500 mg PO QID Qty: 28 0RF cefuroxime axetil 250 mg tablet 250 mg PO BID 7 Days Qty: 14 0RF doxycycline hyclate 100 mg tablet 100 mg PO BID 7 Days Qty: 14 0RF nitrofurantoin monohyd/m-cryst [Macrobid] 100 mg capsule 100 mg PO Q12H 7 Days Qty: 14 0RF Rx Instructions: must administer with a meal/food Stand Alone Forms: Work/School Release Print Language: Hungarian
[2024-06-08 03:54] VITALS: BP 109/76; PULSE 75; RESP 18; TEMP 36.8; O2SAT 96
== END 2024-06-08 03:55 | disposition home or self-care (01) ==
PROVIDERS: Emergency Provider Emergency Medicine Emergency Medical Services
DX: L30.9 Dermatitis, unspecified (principal); J02.9 Acute pharyngitis, unspecified
CPT/HCPCS: 99282; 99283

== ENCOUNTER 2025-04-23 10:36 | Emergency (ER) | payer SELFPAY ==
[2025-04-23 10:48] VITALS: BP 144/89; PULSE 66; RESP 18; TEMP 36.6; O2SAT 98; BMI 47.3
--- NOTE | 2025-04-23 10:51 | ED.GENADULT ---
HPI - General Adult General Chief complaint: Ear Problems Stated complaint: Qtip cotton stuck in ear Time Seen by Provider: 04/23/25 10:51 Source: patient, RN notes reviewed and old records reviewed Mode of arrival: ambulatory Limitations: no limitations History of Present Illness ED Provider: Miriam HPI narrative: Patient is a 25-year-old male presenting to the ED with complaint of foreign body to left ear. States that when he got out of the shower this morning he was cleaning his ears with a Q-tip and he felt the cotton part become stuck in his left ear canal. He states he did not attempt to remove the cotton as he did not want to make the situation worse. He denies any pain or other complaints. MD complaint: Foreign body ear Onset (ago): hour(s) Related Data Previous Rx's ?Medication ?Instructions ?Recorded doxycycline hyclate 100 mg capsule 100 mg PO BID 7 days #14 caps 12/18/21 ibuprofen 600 mg tablet 600 mg PO Q6H PRN fever or pain 04/13/22 #30 tabs cefuroxime axetil 500 mg tablet 500 mg PO BID #14 tabs 04/15/22 doxycycline hyclate 100 mg tablet 100 mg PO BID #14 tabs 04/15/22 fluconazole 150 mg tablet 150 mg PO DAILY #1 tab 04/23/22 (Diflucan) clotrimazole 1 % topical cream 1 appl topical BID #15 grams 07/06/22 cephalexin 500 mg capsule 500 mg PO QID #28 caps 11/19/22 cefuroxime axetil 250 mg tablet 250 mg PO BID 7 days #14 tabs 12/14/23 doxycycline hyclate 100 mg tablet 100 mg PO BID 7 days #14 tabs 12/14/23 nitrofurantoin 100 mg PO Q12H 7 days #14 caps 01/15/24 monohydrate/macrocrystals 100 mg capsule (Macrobid) cefuroxime axetil 250 mg tablet 250 mg PO BID 7 days #14 tabs 05/02/24 Allergies Allergy/AdvReac Type Severity Reaction Status Date / Time No Known Allergies Allergy Verified 04/23/25 10:49 Review of Systems Review of Systems: as per hpi Yes all other systems are reviewed and are negative Constitutional: Constitutional: Reports as per HPI PMFSH Past Medical History Medical History No known health problems Social History Social History Alcohol intake: never Substance Use Type: Marijuana Advance Directives: No Advance Directives Information Provided: No Do you have a plan to hurt others: No Plan Physical Exam ED Vital Signs: Vital Signs - 24 hr 04/23/25 10:48 Temperature 97.8 F Pulse Rate 66 Respiratory Rate 18 Blood Pressure 144/89 H Pulse Oximetry 98 Oxygen Delivery Method Room Air BMI result Body Mass Index 47.3 Vital signs have been reviewed and appear to be correct. Blood pressure normal. Heart rate normal. Respiratory rate normal. Temperature normal. Oxygen saturation normal. Const General: cooperative, healthy appearing and no acute distress Orientation/consciousness: oriented to person, oriented to place, oriented to time and patient oriented x3 Limitations: no limitations HENMT Head: Yes normocephalic and Yes atraumatic Ears: hearing grossly normal bilaterally, external ears normal, TM normal on the right and Abnormal EAC present foreign body on the left (cotton) General nose exam: Normal external nose present Face and sinus: Yes face symmetric Mouth: oropharynx normal and moist mucous membranes Throat: Yes uvula midline Eyes Pupils: Equal, round and reactive pupils present Neck Neck: Yes normal visual inspection and Yes supple Resp Effort & Inspection: normal respiratory effort and able to speak in complete sentences Auscultation: clear to auscultation bilaterally Cardio Rate: regular rate Rhythm: regular rhythm Heart sounds: S1 normal heart sound present and S2 normal heart sound present Skin General skin exam: elasticity normal and turgor normal Neuro General: oriented to person, oriented to place, oriented to time, patient oriented x3, moves all extremities, no focal motor deficits and CN's II-XI intact bilaterally Cranial nerves: Yes Equal, round and reactive pupils present Cognition (Neuro): normal cognition Extrem General: Yes full ROM, Yes no pedal edema and Yes no calf tenderness Psych Mental Status: mental status grossly normal Affect: normal affect Thought process: Normal thought process present Procedures FB Removal Ear Location: ear canal (L) Foreign Body Suspected: other (cotton from Qtip) TM intact pre-procedure: unable to visualize Foreign Body Removed: yes Foreign Body Removal Technique: forceps Tympanic Membrane Intact Post Procedure: Yes Patient Tolerated Procedure: well and no complications Medical Decision Making Medical Decision Making [facility] Narrative: Patient is a 25-year-old male presenting to the ED with complaint of foreign body to left ear. On exam patient is awake, A+Ox3, VS WNL, afebrile, normal neurological exam without focal deficits, physical exam findings as above. Given reported symptoms and physical exam findings, initial differential includes but is not limited to foreign body. FB removed as per procedure note, patient tolerated well, no complications. TM normal after cotton removed. Discussed with patient that he should avoid inserting Q-tips into ear canal in the future. Return precautions discussed. Patient verbalized understanding of and agreement with plan. Differential Diagnosis Differential Diagnoses: The differential diagnosis associated with the presentation includes as per [facility] Admission/Observation Consideration of admission/observation: Escalation of care including admission/observation considered Patient would have been admitted to the hospital and transferred to appropriate facility had their clinical presentation warranted hospital admission. External Record Review External record reviewed: Inpatient record, Office record and Outpatient record Discharge Plan Discharge Clinical Impression: Foreign body in left ear Patient Disposition: Home, Self-Care Instructions: Ear Foreign Body (ED) Additional Instructions: You were evaluated in the emergency department today for a foreign body in your left ear. The foreign body was removed without difficulty. In the future, avoid inserting Q-tips into your ear canal. You can use a washcloth or paper towel to dry the outside of your ear. You should not put anything into your ear smaller than your elbow. Return to the ED with any new or concerning symptoms. Prescriptions: No Action doxycycline hyclate 100 mg capsule 100 mg PO BID 7 Days Qty: 14 0RF cefuroxime axetil 500 mg tablet 500 mg PO BID Qty: 14 0RF doxycycline hyclate 100 mg tablet 100 mg PO BID Qty: 14 0RF ibuprofen 600 mg tablet 600 mg PO Q6H PRN (Reason: fever or pain) Qty: 30 0RF fluconazole [Diflucan] 150 mg tablet 150 mg PO DAILY Qty: 1 0RF Rx Instructions: Take this tablet on 04/26/2022. First dose given on 04/23/2022. clotrimazole 1 % cream 1 appl topical BID Qty: 15 0RF cefuroxime axetil 250 mg tablet 250 mg PO BID 7 Days Qty: 14 0RF cephalexin 500 mg capsule 500 mg PO QID Qty: 28 0RF cefuroxime axetil 250 mg tablet 250 mg PO BID 7 Days Qty: 14 0RF doxycycline hyclate 100 mg tablet 100 mg PO BID 7 Days Qty: 14 0RF nitrofurantoin monohyd/m-cryst [Macrobid] 100 mg capsule 100 mg PO Q12H 7 Days Qty: 14 0RF Rx Instructions: must administer with a meal/food Print Language: Beninese
== END 2025-04-23 12:06 | disposition home or self-care (01) ==
PROVIDERS: Emergency Provider Emergency Medicine Emergency Medical Services
DX: S00.452A Superficial foreign body of left ear, initial encounter (principal); Y93.E8 Activity, other personal hygiene; Y93.9 Activity, unspecified; Y92.9 Unspecified place or not applicable
CPT/HCPCS: 69200; 99281